=== PATIENT | male | born 1945 | race Caucasian/White ===

== ENCOUNTER → 2017-09-30 15:08 | Outpatient (CLI) | payer MEDICARE, OTHER, SELFPAY ==
[2017-09-30 18:45] LABS: Free T4, Direct Thyroxine 1.57 ng/dL (0.78-2.19)
[2017-09-30 18:58] LABS: TSH w/ Reflex to FT4 0.09 uIU/mL (0.47-4.68)
== END ==
PROVIDERS: Family Provider Internal Medicine; PCP Internal Medicine; Visit Provider Internal Medicine
DX: E03.9 Hypothyroidism, unspecified (principal)
CPT/HCPCS: 36415; 84439; 84443

== ENCOUNTER → 2017-12-05 15:52 | Outpatient (CLI) | payer MEDICARE, OTHER, SELFPAY ==
[2017-12-05 17:56] LABS: Thyroid Stimulating Hormone 1.01 uIU/mL (0.47-4.68)
== END ==
PROVIDERS: Family Provider Internal Medicine; PCP Internal Medicine; Visit Provider Student in an Organized Health Care Education/Training Program
DX: E03.9 Hypothyroidism, unspecified (principal)
CPT/HCPCS: 36415; 84443

== ENCOUNTER 2018-02-19 16:09 | Emergency (ER) | payer MEDICARE, OTHER, SELFPAY ==
[2018-02-19 16:09] VITALS: BP 189/86; PULSE 73; RESP 20; TEMP 36.6; O2SAT 98; BMI 27.2
--- NOTE | 2018-02-19 16:30 | DI.US.S_ITS ---
PROCEDURE: US PERIPH VENOUS LOW EXTREM RT INDICATIONS: RIGHT LOWER LEG SWELLING TECHNIQUE: Real-time imaging, as well as color and pulse Doppler interrogation, were performed of the lower extremity deep veins from the inguinal ligament to the popliteal fossa. COMPARISON: None. FINDINGS: The deep veins are normally compressible, and free of intraluminal thrombus. Color and pulse Doppler demonstrate normal phasic intraluminal flow. There is normal augmentation response to distal compression maneuver. There is a complex Mills's cyst measuring 6.9 x 3.4 x 2.5 cm. IMPRESSION: 1. No DVT in the right lower extremity. 2. A large complex Mills's cyst. Dictated by: Elicia Galvan M.D. on 02/19/2018 at 18:55 Approved by: Elicia Galvan M.D. on 02/19/2018 at 18:57
[2018-02-19 19:12] VITALS: BP 171/88; PULSE 79; RESP 18; O2SAT 98
--- NOTE | 2018-02-19 19:21 | ED.LOWEXIN ---
HPI - Extremity Injury (Lower) General Chief Complaint: Extremity Injury, Lower Stated Complaint: sent by Doctor to R/O blood clot of left leg Time Seen by Provider: 02/19/18 18:54 Source: patient Mode of arrival: ambulatory Limitations: no limitations History of Present Illness HPI Narrative: 72-year-old male, nonsmoker with history of hypothyroidism presents at the request of his physician for evaluation right lower extremity pain and swelling. He states he has had these symptoms off and on for it least a few days and denies any sort of injury or overuse. Admits to increased swelling in his knee which now wall swelling of his lower extremity below the knee. He denies numbness, tingling or weakness. He denies recent long distance travel. He does have a history of right knee Mills cyst years ago. His pain is worse with motion and improves with rest MD complaint: knee injury Relieving factors: immobilization Exacerbating factors: weight bearing and movement Associated symptoms: swelling, able to partially bear weight and ambulatory Other symptoms: none Related Data Home Medications Medication Instructions Recorded Confirmed MULTIVITAMIN (One Daily 1 tab PO #0 08/16/10 Multivitamin) VITAMIN B COMPLEX (Vitamin B 1 tab PO #0 08/16/10 Complex) levothyroxine [Synthroid] 0.125 mg PO QDAY #0 08/16/10 mupirocin 2 TP PRN #0 08/16/10 quinine sulfate [Qualaquin] 324 mg PO PRN #0 08/16/10 POTASSIUM GLUCONATE (POTASSIUM 550 mg PO EVERY OTHER DAY #0 04/03/12 GLUCONATE-) [CO Q-10] 300 mg PO QDAY #0 04/03/12 [FISH OIL] 1,200 mg PO QDAY #0 04/03/12 [Ibuprofen] 200 mg PO TID #0 04/03/12 [MAGNESIUM ] 400 mg PO EVERY OTHER DAY #0 04/03/12 [Vitamin C] 1,000 mg PO QDAY #0 04/03/12 [Vitamin D] 2,000 iu PO QDAY #0 04/03/12 [ZADITOR] 1 gtt OU BID #0 04/03/12 metronidazole [Metrogel] 1 % TOPICAL QDAY #0 gm 04/03/12 Previous Rx's Medication Instructions Recorded gabapentin [Neurontin] 0 PO SEE INSTRUCTIONS #405 tab 05/27/17 Allergies Allergy/AdvReac Type Severity Reaction Status Date / Time latex [LATEX] Allergy Unknown Unverified 05/21/17 12:02 Sulfa (Sulfonamide Allergy Unknown Unverified 05/21/17 12:02 Antibiotics) [SULFA (SULFONAMIDE ANTIBIOTICS)] Review of Systems Constitutional Denies chills, Denies fever(s), Denies lethargy and Denies weakness Eyes Denies change in vision, Denies eye discharge, Denies irritation and Denies loss of vision ENT Ears, Nose, Mouth, and Throat: Denies change in voice, Denies neck pain and Denies sore throat Cardiovascular Denies chest pain, Denies irregular heart rhythm, Denies lightheadedness, Denies palpitations, Denies dyspnea, Denies dyspnea on exertion and Denies orthopnea Respiratory Denies cough, Denies dyspnea, Denies dyspnea on exertion and Denies wheezing Gastrointestinal Gastrointestinal: Denies abdominal pain, Denies change in bowel habits, Denies diarrhea, Denies nausea and Denies vomiting Genitourinary Denies hematuria, Denies flank pain, Denies urinary incontinence and Denies urinary urgency Musculoskeletal Reports joint swelling, Reports limited range of motion and Denies neck pain Integumentary/Breasts Denies pruritus, Denies erythema, Denies rash and Denies wounds Neurologic Denies confusion, Denies loss of vision and Denies weakness Psychiatric Denies anxiety, Denies confusion, Denies depression, Denies homicidal ideation and Denies suicidal ideation Endocrine Denies palpitations Hematologic/Lymphatic Denies easy bruising Allergic/Immunologic Denies wheezing PFSH Social History Smoking Status: Never smoker Exam Narrative Exam Narrative: GEN: AOx3 and in mild distress EYES: Pupils are equal, round, and reactive to light and accommodation. Extraoccular muscles are intact bilaterally. There is no subconjunctival hemorrhage or exudate. CHEST: Lungs are clear to auscultation bilaterally and free of wheezes, rales, or rhonchi. Heart rate is regular rhythm, there are no murmurs, clicks, rubs, or gallops. There is no chest wall tenderness. ABD: Abdomen is soft and nontender. There is no guarding or rebound. Bowel sounds are normal in all 4 quadrants. There is no mass or organomegaly. EXT: Full but painful range of motion at the right knee. There is edema and generalized tenderness but no redness or warmth. There is some swelling of the right calf. No ligamentous instability. Neurovascularly intact SKIN: Warm, pink, and dry. No erythema or rash Initial Vital Signs Initial Vital Signs: Vital Signs Temperature 97.8 F 02/19/18 16:09 Pulse Rate 73 02/19/18 16:09 Respiratory Rate 20 02/19/18 16:09 Blood Pressure 189/86 H 02/19/18 16:09 Pulse Oximetry 98 02/19/18 16:09 Course Orders Ordered: ED Orders 02/19/18 16:30 US periph venous low extrem rt Stat Vital Signs - 8 hr 02/19/18 19:12 Pulse Rate 79 Respiratory Rate 18 Blood Pressure [Left Arm] 171/88 H Pulse Oximetry 98 MDM - Extremity Injury (Lower) Imaging Data US Leg: Radiologist's impression: Antibiotics) CLOSE Vascular Ultrasound (Signed) Madhuri Galvan - 02/19/18 Launch Image View Report History [address] [address] Ultrasound Report Signed Patient: Carroll Wren MR#: [id number] : 1945 Acct:[id number] Age/Sex: 72 / M Date of Service: 02/19/18 Loc: ED Accession Number: [id number] Procedure: US periph venous low extrem rt Ordering Provider: Michelle Hinton D.O. PROCEDURE: US PERIPH VENOUS LOW EXTREM RT INDICATIONS: RIGHT LOWER LEG SWELLING TECHNIQUE: Real-time imaging, as well as color and pulse Doppler interrogation, were performed of the lower extremity deep veins from the inguinal ligament to the popliteal fossa. COMPARISON: None. FINDINGS: The deep veins are normally compressible, and free of intraluminal thrombus. Color and pulse Doppler demonstrate normal phasic intraluminal flow. There is normal augmentation response to distal compression maneuver. There is a complex Mills's cyst measuring 6.9 x 3.4 x 2.5 cm. IMPRESSION: 1. No DVT in the right lower extremity. 2. A large complex Mills's cyst. Dictated by: Elicia Galvan M.D. on 02/19/2018 at 18:55 Discharge Plan Departure Patient Disposition: Home Clinical Impression: Mills's cyst of knee Discharge Date/Time: 02/19/18 19:41 Interventions: ED Discharge Assessment Last Done: 02/19/18 19:41 Instructions: Bakers Cyst Activity Restrictions/Additional Instructions: *You have been diagnosed with [ Right Knee Mills's Cyst ] *What to do: *Take medications as directed *Follow up with your primary care provider in 2-3 days, call for an appointment. Let them know you were seen in the Emergency Department and that we ask that you be seen in follow up. Follow up with Dr. Blackwood next week as planned *Return to ER if you should have any new, worsening or concerning symptoms Prescriptions: No Action levothyroxine [Synthroid] 125 MCG tablet 0.125 mg PO QDAY Qty: 0 RF: 0 quinine sulfate [Qualaquin] 324 MG capsule 324 mg PO PRN Qty: 0 RF: 0 mupirocin 2 % ointment 2 TP PRN Qty: 0 RF: 0 MULTIVITAMIN (One Daily Multivitamin) 1 tab PO Qty: 0 RF: 0 VITAMIN B COMPLEX (Vitamin B Complex) 1 tab PO Qty: 0 RF: 0 [CO Q-10] 300 mg PO QDAY Qty: 0 RF: 0 [Vitamin D] 2,000 iu PO QDAY Qty: 0 RF: 0 [FISH OIL] 1,200 mg PO QDAY Qty: 0 RF: 0 [ZADITOR] 1 gtt OU BID Qty: 0 RF: 0 [Vitamin C] 1,000 mg PO QDAY Qty: 0 RF: 0 metronidazole [Metrogel] 1 % gel 1 % Topical QDAY Qty: 0 RF: 0 [Ibuprofen] 200 mg PO TID Qty: 0 RF: 0 POTASSIUM GLUCONATE (POTASSIUM GLUCONATE-) 550 mg PO EVERY OTHER DAY Qty: 0 RF: 0 [MAGNESIUM ] 400 mg PO EVERY OTHER DAY Qty: 0 RF: 0 gabapentin [Neurontin] 800 MG tablet PO SEE INSTRUCTIONS Qty: 405 RF: 3 Referrals: Edis Kwok MD [Primary Care Provider] -
== END 2018-02-19 19:41 | disposition home or self-care (01) ==
PROVIDERS: Emergency Provider Emergency Medicine; Family Provider Internal Medicine; PCP Internal Medicine
DX: M71.21 Synovial cyst of popliteal space [Baker], right knee (principal)
CPT/HCPCS: 93971; 99282; 99284

== ENCOUNTER 2018-03-26 11:51 | Day surgery (SDC) | payer MEDICARE, OTHER, SELFPAY ==
[2018-03-26] VITALS (9 sets, daily range): BP systolic 97–153; BP diastolic 52–80; PULSE 60–76; RESP 10–18; TEMP 36.1–36.7; O2SAT 94–98; BMI 25.6
[2018-03-26] MEDS: SODIUM CHLORIDE 0.9% 1,000 ML 200 ML IV (12:44)
--- NOTE | 2018-03-26 13:22 | PM.HP.1 ---
History of Present Illness Date Patient Seen: 03/26/18 Time Patient Seen: 13:22 Chief complaint: [address] Colonoscopy Narrative: 72-year-old male who presents for colorectal screening. His last examination was approximately 11 years ago. On further history today he denies any gastrointestinal symptoms or change in bowel habits. Patient History Medical History Erectile dysfunction (Acute) Hyperlipidemia (Acute) Hypothyroidism (Acute) Seasonal allergies (Acute) Surgical History History of colonoscopy (Acute) History of knee surgery (Acute) History of lumbar fusion (Acute) Social History household members: spouse Smoking Status: Never smoker Family & Social History Social History: household members spouse Tobacco & Substance use: Smoking Status Never smoker Substance Use Type does not use Meds Home Medications Medication Instructions Recorded Confirmed Type levothyroxine [Synthroid] 100 mcg PO QDAY #0 08/16/10 03/26/18 History multivitamin 1 tab PO DAILY #0 08/16/10 03/26/18 History cholecalciferol (vitamin D3) 2,000 unit PO DAILY #0 04/03/12 03/26/18 History [Vitamin D3] magnesium 400 mg PO DAILY #0 04/03/12 03/26/18 History metronidazole [Metrogel] 1 % TOPICAL QDAY #0 gm 04/03/12 03/26/18 History omega 4-abe-ams-fish oil [Fish Oil] 1,200 mg PO DAILY #0 04/03/12 03/26/18 History pregabalin [Lyrica] 150 mg PO BID 03/26/18 03/26/18 History rosuvastatin 10 mg PO DAILY 03/26/18 03/26/18 History sildenafil (antihypertensive) 20 mg PO DAILY PRN 03/26/18 03/26/18 History Allergies Allergy/AdvReac Type Severity Reaction Status Date / Time latex [LATEX] Allergy Unknown Verified 03/26/18 12:23 Sulfa (Sulfonamide Allergy Unknown Verified 03/26/18 12:23 Antibiotics) [SULFA (SULFONAMIDE ANTIBIOTICS)] Review of Systems Review of Systems All systems reviewed & are unremarkable except as noted in HPI and below Exam Vital Signs (past 8 hours): - 03/26/18 12:38 Temperature 98 F Pulse Rate 76 Respiratory Rate 15 Blood Pressure 153/80 H Pulse Oximetry 94 Oxygen Delivery Method Room Air Narrative Exam Narrative: Well-nourished well-developed male in no acute distress. Alert oriented x3 Sclera nonicteric Regular rate rhythm Abdomen soft, nondistended, nontender Extremities show no clubbing or cyanosis Objective Labs Labs: No recent laboratory or radiographic studies for review Assessment & Plan Assessment & Plan narrative: 72-year-old male requiring colorectal screening since it has been 11 years from his last examination. Colonoscopy is currently recommended. Technical details reviewed. Risks, benefits, and alternatives were explained. Risks including but not limited to sedation, aspiration, bleeding, pain, missed lesion, incomplete examination, need for further radiographic studies, colonic perforation, need for major abdominal surgery, and all attendant risks of major surgery were explained at length. All questions were answered to his satisfaction, and he voiced understanding. Consent was placed on the chart. We will proceed as above.
--- NOTE | 2018-03-26 13:24 | PM.PREOP ---
Pre-operative Note Interval Note History & Physical reviewed/Exam performed by Physician: Yes Changes to H&P: No H&P completed within 30 days and has changed as indicated here:: Patient seen and examined. History physical examination placed on the chart. No changes obviously in the last 15 min. Proceed with colonoscopy today as planned. ASA Class (for procedural sedation): II
[2018-03-26] MEDS: fentaNYL 250 MCG/5 ML INJ IV (13:38)
[2018-03-26] MEDS: MIDAZOLAM 5 MG/5 ML VIAL IV (13:38)
--- NOTE | 2018-03-26 13:44 | PM.OP.ENDO ---
Operative Date/Time/Diagnoses Date of procedure: 03/26/18 Time of procedure: 13:44 Pre-op diagnosis: Colorectal screening Post-op diagnosis: other (Diverticulosis but otherwise normal colon and rectum) Procedure & Clinicians Study performed: 1. Sedation per surgeon 2. Colonoscopy Same procedure as scheduled: Yes Indications: 72-year-old male who presents for colorectal screening. Last examination was 11 years ago. Colonoscopy is currently recommended. Surgeon: Qasim Alicea Procedure Notes SCOAP/Timeout: Yes Procedure in detail: After obtaining informed consent, the patient was brought to the GI suite and placed in the left lateral decubitus position on the examination table. After placement of appropriate monitors, the patient was given incremental doses of Versed and Fentanyl until an appropriate level of sedation was achieved. A time out was held per SCOAP protocol. A digital rectal examination was performed and did not reveal any masses or obstructing lesions. The colonoscope was gently passed into the patient's anus and the entire colon navigated to the level of the cecum with minimal difficulty. Once in the cecum, the scope was withdrawn being sure to go before and beyond all mucosal folds and prominences and get an excellent examination. The findings are noted above. At the level of the rectal vault, the scope was retroflexed and the internal anal canal was examined. The scope was straightened and air aspirated from the colon. The instrument was removed from the patient's body and the procedure was concluded. The patient was allowed to awaken from sedation without difficulty and taken to the post-anesthesia care unit in good condition. Scope withdrawal time: 7:20 min Sedation minutes: 20 Findings: diverticulosis and other findings (Otherwise normal colon and rectum) Specimen(s): none sent Complications: none Recommendations: High fiber diet and Other recommendation (No further colonoscopy indicated in the absence of any new symptoms) Plan for aftercare: 1. Discharge home Follow up: as needed Disposition: PACU
== END 2018-03-26 14:46 | disposition home or self-care (01) ==
PROVIDERS: Family Provider Internal Medicine; PCP Internal Medicine; Visit Provider Surgery
PROC: 0DJD8ZZ Inspection of Lower Intestinal Tract, Via Natural or Artificial Opening Endoscopic (ICD-10-PCS; CPT 45378; principal; 2018-03-26 13:00)
DX: Z12.11 Encounter for screening for malignant neoplasm of colon (principal); K57.30 Diverticulosis of large intestine without perforation or abscess without bleeding; E78.5 Hyperlipidemia, unspecified; E03.9 Hypothyroidism, unspecified
CPT/HCPCS: G0121; 99152; J2250; J3010

== ENCOUNTER → 2018-05-29 15:14 | Outpatient (CLI) | payer MEDICARE, OTHER, SELFPAY ==
[2018-05-29 15:57] LABS: Hematocrit 41.2 % (41-53); Hemoglobin 13.7 g/dL (13.5-17.5); Mean Corpuscular HGB Conc 33.2 % (30-36); Mean Corpuscular Hemoglobin 31.9 PG (26-34); Mean Corpuscular Volume 96.1 fL (80-100); Platelet Count 160 X10^3/uL (150-400); Red Blood Cell Count 4.29 X10^6/uL (4.5-5.9); Red Cell Distribution Width 13.5 % (11.6-14.8); White Blood Cell Count 6.4 X10^3/uL (4.5-11.0)
[2018-05-29 16:01] LABS: Bacteria Urine None Seen; RBC Urine None Seen (0-5/HPF); WBC Urine None Seen (0-5/HPF)
[2018-05-29 16:04] LABS: Hemoglobin A1C% w Est Avg Glu 5.4 % (4.0-6.0)
[2018-05-29 16:06] LABS: Appearance Urine UA CLEAR; Bilirubin Urine UA NEGATIVE (NEGATIVE); Color Urine UA YELLOW; Glucose Urine UA NEGATIVE (Negative); Ketones Urine UA NEGATIVE (NEGATIVE); Leukocyte Esterase Urine UA NEGATIVE (NEGATIVE); Nitrite Urine UA NEGATIVE (Negative); Occult Blood Urine UA NEGATIVE (Negative); Protein Urine UA NEGATIVE (Negative); Specific Gravity Urine UA <=1.005 (1.000-1.035); Urobilinogen Urine UA 0.2 E.U./dL (0.2); pH Urine UA 6.5 (4.5-8.0)
[2018-05-29 16:12] LABS: Blood Urea Nitrogen 20 mg/dL (9-20); Calcium 9.4 mg/dL (8.4-10.2); Carbon Dioxide 30 mmol/L (22-32); Chloride 102 mmol/L (98-107); Estimated Glomerular Filt Rate > 60.0 mL/min (>60); Glucose 83 mg/dL (80-110); HEMOLYSIS < 15 (0-50); Potassium 4.5 mmol/L (3.4-5.1); Sodium 140 mmol/L (137-145)
[2018-05-29 16:18] LABS: Transferrin 260 mg/dL (206-381)
[2018-05-29 16:18] LABS: Urine Comments Microscopic Normal
== END ==
PROVIDERS: PCP Internal Medicine; Visit Provider Orthopaedic Surgery
DX: E61.1 Iron deficiency (principal); N39.0 Urinary tract infection, site not specified; R73.9 Hyperglycemia, unspecified; Z01.818 Encounter for other preprocedural examination
CPT/HCPCS: 36415; 80048; 81001; 83036; 84466; 85027; 93005; 93010

== ENCOUNTER → 2018-06-10 08:06 | Outpatient (CLI) | payer MEDICARE, OTHER, SELFPAY ==
--- NOTE | 2018-06-10 | DI.US.S_ITS ---
PROCEDURE: US PERIPH VENOUS LOW EXTREM LT INDICATIONS: OTHER SPECIFIED SOFT TISSUE DISORDERS TECHNIQUE: Real-time imaging, as well as color and pulse Doppler interrogation, were performed of the lower extremity deep veins from the inguinal ligament to the popliteal fossa. COMPARISON: None. FINDINGS: The common femoral, femoral and popliteal veins are normally compressible, and free of intraluminal thrombus. Color and pulse Doppler demonstrate normal phasic intraluminal flow. There is normal augmentation response to distal compression maneuver. Incidentally noted Mills's cyst measuring 6.4 x 1.2 x 3.2 cm. IMPRESSION: No evidence of deep venous thrombosis. Incidentally noted Mills's cyst. Dictated by: Sky Roper M.D. on 06/10/2018 at 8:59 Approved by: Sky Roper M.D. on 06/10/2018 at 9:09
== END ==
PROVIDERS: PCP Internal Medicine; Visit Provider Orthopaedic Surgery
DX: M79.89 Other specified soft tissue disorders (principal); M71.22 Synovial cyst of popliteal space [Baker], left knee
CPT/HCPCS: 93971

== ENCOUNTER 2018-07-08 08:54 | Day surgery (SDC) | payer MEDICARE, OTHER, SELFPAY ==
[2018-06-24 13:49] VITALS: BMI 26.3
[2018-07-08] VITALS (23 sets, daily range): BP systolic 98–141; BP diastolic 33–78; PULSE 20–120; RESP 8–19; TEMP 36.1–36.8; O2SAT 91–100; BMI 27.0
--- NOTE | 2018-07-08 09:05 | DI.RAD.S_ITS ---
PROCEDURE: XR KNEE RT 1TO2V INDICATIONS: prosthesis placement TECHNIQUE: 2 view(s) of the knee acquired. COMPARISON: [facility], , KNEE 3V RIGHT, 09/15/2006, 15:15. FINDINGS: Bones: Patient is status post knee joint arthroplasty. Hardware components are in expected positions. Visualized bony structures are intact. Soft tissues: Overlying postoperative changes are noted. IMPRESSION: Normal alignment after right knee arthroplasty. Dictated by: Arden Neville M.D. on 07/08/2018 at 12:56 Approved by: Arden Neville M.D. on 07/08/2018 at 12:56
[2018-07-08] MEDS: LACTATED RINGERS 1,000 ML 42 ML IV ×2 (09:12→11:25)
[2018-07-08] MEDS: ACETAMINOPHEN 325 MG TABLET 975 MG PO ×3 (09:22→20:31)
[2018-07-08] MEDS: PREGABALIN 75 MG CAPSULE PO (09:22)
--- NOTE | 2018-07-08 09:43 | PM.PREOP ---
Pre-operative Note Interval Note History & Physical reviewed/Exam performed by Physician: Yes Changes to H&P: No
--- NOTE | 2018-07-08 09:57 | PM.OP.1 ---
Operative Date/Time/Diagnoses Date of procedure: 07/08/18 Time of procedure: 12:20 Pre-op diagnosis: Right knee osteoarthritis Post-op diagnosis: same Procedure & Clinicians Procedure: Right total knee replacement Same procedure as scheduled: Yes Indications: The patient has had progressively worsening right knee pain with radiographic changes consistent with arthritis. Non-operative management has failed and the patient has requested total knee replacement. The risks, benefits and alternatives to surgery were discussed with the patient prior to proceeding. Risks discussed included, but were not limited to, failure to relieve pain, stiffness, infection, nerve damage, deep venous thrombosis, pulmonary embolism, stroke, coma, heart attack, permanent paralysis and , as well as the potential need for eventual revision of the prosthetic. Surgeon: Jayce Blackwood Helium Arc Welder: Hyun Brush Click Yes if Unassisted: No Anesthesia Type: General, Peripheral nerve block and Local Operative Notes Findings: Severe medial and moderate patellofemoral osteoarthritis Closure Type: primary Specimen(s): none sent Prosthetic devices, grafts, tissues, transplants, or devices: Implants used in this procedure were manufactured by the [employer] and [employer] and included the BCS II Journey total knee replacement with a size 7 right cobalt chromium femur, size 6 right non porous tibial base plate, a 10 mm crosslink polyethylene tibial insert and a 38 mm oval Lisa II patellar component. Applied: implant(s) Estimated Blood Loss (mL): 25 Blood products transfused: none Tourniquet time (min): 51 Procedure in detail: The patient was seen in the pre-operative area, where the patient identified the right knee as the operative site and this was marked with my initials. The patient received pre-operative antibiotics, and was taken to the operating room and placed on the operative table in the supine position. After satisfactory anesthesia, a multimedia technician out was performed. The right leg was encircled with a tourniquet about the proximal thigh, and the leg was prepared from the toes to the tourniquet with ChloroPrep in the usual fashion and draped through sterile drapes. The leg was elevated and exsanguinated with Eschmark bandage and the tourniquet inflated to 250 mmHg pressure. The knee was approached through an approximately 18 cm incision centered over the patella and carried into the knee through a medial parapatellar arthrotomy. The anterior osteophytes and soft tissues were removed. The rotational landmarks of [place]'s line and the transepicondylar axis were marked on the femur with electrocautery, and intramedullary guide holes for the femur and tibia were created. The distal femoral cut was made in 6 degrees of valgus using the intramedullary guide at the primary cut setting. The proximal tibial cut was then made using the intramedullary guide, taking 9 mm of bone off the less involved side. The extension gap was checked and the rotation of the femoral component confirmed with the gap balancing system. The anterior, posterior and chamfer cuts were then made. The posterior osteophytes and soft tissues were then removed. The posterior capsule was injected with part of a mixture of 60 ml 0.25% Marcaine mixed with 20 ml Exparel and 4 mg of morphine for post-operative pain control. The remainder of this mixture was injected into the capsule and subcutaneous tissues during cement curing. The tibia was prepared with the rotation set by an extra medullary guide. Trial tibial and femoral components were then placed and the intercondylar notch cut through the femoral trial. Range of motion was 0-135 degrees, with good stability throughout the range. The patella was then cut to accommodate the patellar prosthetic. There was no need for a lateral release. The trials were then removed, and the femoral hole plugged with a bone plug. The bone was prepared with pulsatile lavage, and dried with a sponge. Cement was applied and the final prosthetics placed. Excess cement was removed during and after cement curing. After confirming there was no extruded cement posteriorly, the final tibial insert was placed. The knee was copiously irrigated and the tourniquet deflated. Hemostasis was obtained. The capsule was closed with interrupted # 2 polyester suture. The subcutaneous layer was closed with 3-0 Vicryl, and the skin with a running 3-0 V-Lock suture and SteriStrips. An Aquacel Ag dressing was applied and the patient was taken to recovery having tolerated the procedure well. Complications: none Condition: stable Disposition: PACU Plan for aftercare: The patient will be maintained on a standard total knee replacement protocol with weight bearing as tolerated. The patient will receive aspirin and sequential compression devices for DVT prophylaxis. The patient will be discharged home when safe for the home environment.
[2018-07-08] MEDS: fentaNYL 100 MCG/2 ML INJ 50 MCG IV (09:58)
[2018-07-08] MEDS: MIDAZOLAM 2 MG/2 ML VIAL IV (09:58)
[2018-07-08] MEDS: CEFAZOLIN 2 GM/100 ML FROZ.PIGGY IV (10:34)
[2018-07-08] MEDS: TRANEXAMIC ACID 1,000 MG VIAL 1000 MG INJ ×2 (10:45→12:06)
--- NOTE | 2018-07-08 11:12 | SUR.OPER ---
Supine on padded OR bed. Pillow under head, arms secured on padded armboards <90 degree abduction. Safety belt across torso. Non-operative leg secured with tape over blanket over lower leg. Operative leg secured in [place]/Mark positioner. Foam padded brace at thigh of operative leg.
[2018-07-08] MEDS: BUPIVACAINE 0.25% W/ EPI 30 ML VIAL 60 ML INJ (11:18)
[2018-07-08] MEDS: BUPIVACAINE LIPOSOME 266 MG/20 ML VIAL INJ (11:20)
[2018-07-08] MEDS: MORPHINE 4 MG/ML INJ INJ (11:21)
[2018-07-08] MEDS: HYDROMORPHONE 2 MG INJ 0.5 MG IV ×5 (12:54→13:29)
--- NOTE | 2018-07-08 13:37 | SUR.PHASEI ---
placed in left lateral position supported with pillows with improvment able to rest, states pain has decreased now to tolerable level. able to sleep.
[2018-07-08] MEDS: LACTATED RINGERS 1,000 ML 125 ML IV (16:16)
[2018-07-08] MEDS: IBUPROFEN 400 MG TABLET PO (17:15)
[2018-07-08] MEDS: DOCUSATE 100 MG CAPSULE PO (20:31)
[2018-07-08] MEDS: PREGABALIN 75 MG CAPSULE 150 MG PO (20:31)
[2018-07-08] MEDS: ASPIRIN EC 81 MG TABLET PO (20:32)
[2018-07-09] MEDS: LACTATED RINGERS 1,000 ML 125 ML IV (01:50)
[2018-07-09 03:07] VITALS: BP 143/65; PULSE 63; RESP 18; TEMP 36.5; O2SAT 100
[2018-07-09] MEDS: IBUPROFEN 400 MG TABLET PO (03:25)
[2018-07-09] MEDS: LEVOTHYROXINE 100 MCG TABLET PO (05:47)
[2018-07-09 06:01] LABS: Hematocrit 34.3 % (41-53); Hemoglobin 11.9 g/dL (13.5-17.5)
[2018-07-09 07:30] VITALS: BP 131/67; PULSE 63; RESP 16; TEMP 36.9; O2SAT 98
--- NOTE | 2018-07-09 07:36 | PM.DS.1 ---
History of Present Illness Date Patient Seen: 07/09/18 Time Patient Seen: 07:37 Chief complaint: [id number] Narrative: History and physical are contained in the chart previously completed note. Please refer to that note for this information. Discharge Providers Date of admission: 07/08/18 08:54 Discharge Date: 07/09/18 Primary care physician: Tomer Asencio MD Consults: 07/08/18 15:03 Consult to Anesthesiology Routine Comment: Consulting Provider: Anesthesiologist Reason for consultation: Regional block for post operative pain control Consult to Discharge Planning Routine Comment: Consult to Physical Therapy Evaluate & Treat Comment: Physician Instructions: postop TKA protocol Discharge provider: Jayce Blackwood MD Summary Discharge Diagnosis: 1. Right knee osteoarthritis 2. Mild post hemorrhagic anemia Hospital Course: The patient was admitted the hospital and taken directly to the operating room on July 08, 2018 where he underwent a right total knee replacement without complications. On postoperative day 1 he was very comfortable and we were anticipating discharge at the time of this dictation. Status at Discharge Cognitive/behavioral status at discharge: oriented Functional status at discharge: uses cane/walker Overall status at discharge: patient is progressing back to baseline Time Spent with Patient Less than 30 minutes Exam Vital Signs (past 8 hours): - 07/09/18 03:07 Temperature 97.7 F Pulse Rate 63 Respiratory Rate 18 Blood Pressure 143/65 H Pulse Oximetry 100 Oxygen Delivery Method Room Air Oxygen Flow Rate 1 Narrative Exam Narrative: Right knee wound is dressed with no drainage on the bandage. Calf is soft. Light touch and motion are intact in the right lower extremity. Objective Labs Result Diagrams: 07/09/18 05:25 Labs: Laboratory Results - last 24 hr 07/09/18 05:25 Hgb 11.9 L Hct 34.3 L Radiographs: Well-positioned total knee replacement with no evidence for early complications. Discharge Plan Discharge Plan Patient Disposition: Home Discharge Med Rec/Prescriptions Prescriptions: New acetaminophen 325 mg Tablet 975 mg PO TID 30 Days Qty: 270 RF: 0 aspirin 81 mg Tablet,Delayed Release (Dr/Ec) 81 mg PO BID Qty: 84 RF: 0 oxycodone 5 mg Tablet 5 mg PO Q3HR PRN (Reason: Pain, Moderate (4-6)) Qty: 40 RF: 0 Continued levothyroxine [Synthroid] 125 MCG tablet 100 mcg PO QDAY Qty: 0 RF: 0 multivitamin Tablet 1 tab PO DAILY Qty: 0 RF: 0 cholecalciferol (vitamin D3) [Vitamin D3] 2,000 unit Tablet 2,000 unit PO Q OTHER DAY Qty: 0 RF: 0 omega 1-unr-okg-fish oil [Fish Oil] 1,000 mg (120 mg-180 mg) Capsule 1,200 mg PO DAILY Qty: 0 RF: 0 metronidazole [Metrogel] 1 % gel 1 % Topical QDAY Qty: 0 RF: 0 magnesium 200 mg Tablet 400 mg PO Q OTHER DAY Qty: 0 RF: 0 rosuvastatin 10 mg Tablet 10 mg PO Q OTHER DAY RF: 0 sildenafil (antihypertensive) 20 mg Tablet 20 mg PO PRN PRN (Reason: Sexual Activity) RF: 0 Lyrica 150 mg Capsule 150 mg PO BID RF: 0 clobetasol 0.05 % Cream 1 applic TOPICAL DAILY PRN (Reason: Hives) RF: 0 ibuprofen 200 mg Tablet 400 mg PO BID-TID PRN (Reason: pain) RF: 0 triamterene-hydrochlorothiazid 37.5-25 mg Tablet 1 tab PO DAILY RF: 0 loratadine [Claritin] 10 mg Tablet 10 mg PO DAILY RF: 0 diclofenac sodium [Voltaren] 1 % Gel 2 g TOPICAL PRN PRN (Reason: Arthritis in hands) RF: 0 Follow up/Referrals: Tomer Asencio MD [Primary Care Provider] - Jayce Blackwood MD [Physician] - 3-5 Days Provider Discharge Instructions Diet: Diet as Tolerated and Regular Activity: You may weight bear as tolerated on your right leg. Cold/Heat Therapy: Apply ice to your right knee for 15 minutes of every hour as needed for pain. Skin/Wound/Dressing Care Report to your healthcare provider any signs of infection, such as:: chills, fever, night sweats, increased pain, unusual drainage and unusual redness Dressing: Leave the Anmol wrap in place until 3 days after surgery. You may then remove the Anmol wrap and shower normally. Leave the deeper dressing in place until you return to the office. If the central strip of the deep dressing becomes saturated with either water or blood call the office to have it changed. Visit Report/Discharge Packet Instructions: DI for Knee Replacement Stand Alone Forms: Surgery Discharge Discharge Data Primary Care Provider: Tomer Asencio V Attending Provider: Jayce Blackwood Admit Date/Time: 07/08/18 08:54
[2018-07-09] MEDS: TRIAMTERENE/HCTZ 37.5/25 TABLET 1 CAP PO (09:37)
[2018-07-09] MEDS: PREGABALIN 75 MG CAPSULE 150 MG PO (09:37)
[2018-07-09] MEDS: LORATADINE 10 MG TABLET PO (09:38)
[2018-07-09] MEDS: ACETAMINOPHEN 325 MG TABLET 975 MG PO (09:38)
[2018-07-09] MEDS: DOCUSATE 100 MG CAPSULE PO (09:38)
--- NOTE | 2018-07-09 10:14 | PT.IIE ---
Current Diagnoses Unilateral primary osteoarthritis, right knee (07/08/18) Surgery Performed Operation Date: 07/08/18 10:15 Actual Procedures p Total Knee Arthroplasty(Right) - Jayce Blackwood MD Surgical History (Last Updated 06/24/18 @ 14:39 by Kamala Lee, RN) H/O arthroscopy of right knee (Acute) History of back surgery (Acute ~2012) History of colonoscopy (Acute) History of knee surgery (Acute) History of lumbar fusion (Acute ~2009) History of lumbar fusion (Acute 06/12/12) Hx of hand surgery (Acute) Hx of laminectomy (Acute ~1990) Hx of tonsillectomy (Acute) Medical History (Last Updated 06/24/18 @ 14:33 by Kamala Lee RN) Atypical chest pain (Acute) Bronchitis (Acute) Elevated blood pressure reading without diagnosis of hypertension (Acute) Erectile dysfunction (Acute) Hearing impaired (Acute) Hyperlipidemia (Acute) Hypothyroidism (Acute) Left leg swelling (Acute) Low back pain (Acute) Osteoarthritis (Acute) Peripheral neuropathy, idiopathic (Acute) Seasonal allergies (Acute) Physical Therapy Inpatient Evaluation/Re-Eval M1 PT/OT-IP Prior Functional Status Start: 07/08/18 17:03 Freq: NEEDED Status: Discharge Protocol: Document 07/09/18 10:14 AB (Rec: 07/09/18 13:36 AB [id number]) Medical Review Prior Functional Status Medical History Reviewed Yes Communication able to make needs known Mobility and Gait pt stated that he is independent with all mobilities an dambultion without AD but has uses a FWW/ SPC for the last 2 weeks due ot knee pain Social History Household Members spouse Living Arrangements House Number of Floors (Floors) One Floor Number of Stairs To Enter/Railing? 5 steps to enter with L rail ascending from the garage Home Environment Standard Height Toilet Walk in Shower Home Equipment Front Wheel Walker Straight Cane Raised Toilet Seat w/Armrests Shower Seat with Backrest Grab Bars In Shower M2 PT-IP Current Condition Start: 07/08/18 17:03 Freq: NEEDED Status: Discharge Protocol: Document 07/09/18 10:14 AB (Rec: 07/09/18 13:36 AB [id number]) Physical Therapy Current Condition Current Condition Evaluation Date 07/09/18 Treatment Diagnosis s/p R TKR; difficulty in walking Onset Date 07/08/18 Weight Bearing Status Weight Bearing Status Weight Bear as Tolerated M3 PT-IP Subjective Start: 07/08/18 17:03 Freq: NEEDED Status: Discharge Protocol: Document 07/09/18 10:14 AB (Rec: 07/09/18 13:36 AB [id number]) Subjective Physical Therapy Visit Type Type Initial Evaluation Visit Start Time 10:14 Visit Stop Time 10:51 Total Visit Minutes 37 Number of LOSS PREVENTION AND SAFETY MANAGER Visits 0 Physical Therapy Visit Comments Patient Comments pt agreeable to do PT Therapy Pain Assessment Pain When Pain Assessed At Rest Pain Present Pain Present Pain Reported Location Generalized Intensity 3 Scale Used Numeric (1 - 10) M4 PT-IP Mobility and Gait Start: 07/08/18 17:03 Freq: NEEDED Status: Discharge Protocol: Document 07/09/18 10:14 AB (Rec: 07/09/18 13:36 AB [id number]) PT-Bed Mobility Assessment Supine to Sit Supine to Sit Standby Assistance Sit to Supine Sit to Supine Standby Assistance Scooting Scooting to Edge of Bed Standby Assistance PT-Transfer Assessment Sit to and From Stand Sit to and from Stand Standby Assistance Equipment Transfer Assistive Device Gait Belt Front Wheeled Walker Orthotic/Prosthetic Devices or Brace: No Transfers Transfer Destination Bed Transfer Technique pt ambulated using FWW Transfer Ability Level of Assist Standby Assistance Gait Assessment Gait Gait Assistance Required: Standby Assistance Distance (Feet) 200 Able to Maintain Weight Bearing Status Yes During Gait Assistive Devices Assistive Device Gait Belt Front Wheeled Walker Orthotic/Prosthetic Devices or Brace: No Gait Deviations General Gait Pattern Antalgic Decreased Stride Length Decreased Feet Clearance Factors Limiting Gait Function Factors Limiting Gait Function Decreased Activity Tolerance Decreased Strength Limited Range of Motion Pain Poor Balance Comments Gait Comments pt ambulated towards the stair and back to room 200 ft x 2 using FWW SBA . Stair Climbing Assessment Evaluation Level of Assist On Stairs Contact Guard Assistance 1 Person Assistance Devices Stair Climbing Assistive Devices Left Railing Technique/Endurance Stair Climbing Direction Ascend and Descend Stair Climbing Technique Step to Step Number of Steps Climbed 3 Query Text: Stair Climbing Set # Repetitions (reps) 2 PT-Balance Assessment Sitting Balance and Reactions Static Sitting Balance Ability Good Dynamic Sitting Balance Ability Good Standing Balance and Reactions Static Standing Balance Ability Fair Dynamic Standing Balance Ability Fair Device Used FWW M5 PT-IP Objective Assessments Start: 07/08/18 17:03 Freq: NEEDED Status: Discharge Protocol: Document 07/09/18 10:14 AB (Rec: 07/09/18 13:36 AB [id number]) Orientation Orientation/Cognition Level of Alertness Alert Orientation Name Place Situation Safety Awareness Understands Safety Issues Gross Range of Motion Lower Extremity ROM Assessment Right Impaired Impairments R knee flexion: ~ 70 deg R knee extension: lacking ~ 10 deg to neutral Strength Lower Extremity Strength Assessment Right Impaired Hip 4-/5 Knee 3+/5 Coordination Assessment Gross Coordination Gross Coordination WNL Sensation Assessment Sensation Gross Sensation WNL Muscle Tone Muscle Tone WNL Yes M6 PT-IP Treatment Start: 07/08/18 17:03 Freq: NEEDED Status: Discharge Protocol: Document 07/09/18 10:14 AB (Rec: 07/09/18 13:36 AB [id number]) Physical Therapy Treatment Exercises Exercises Heel Slides Education Education Provided Precautions Weight Bearing Status Post-Op Packet Safety M7 PT-IP Assessment and Plan Start: 07/08/18 17:03 Freq: NEEDED Status: Discharge Protocol: Document 07/09/18 10:14 AB (Rec: 07/09/18 13:36 AB [id number]) PT Summary Assessment and Plan Potential Rehabilitation Potential Good Status of Condition at Evaluation Stable Summary Impairments Pain ROM Strength Balance Coordination Sensation Tone Cognition Bed Mobility Transfers Gait Activity Tolerance Assessment Summary pt requiring SBA to CGA with mobility and plans to go home today with spouse to assist him. pt is already set up for outpt PT. Goals Bed Mobility Goal Independent Transfer Goal Independent Front Wheeled Walker Gait Goal Independent Front Wheel Walker Gait Distance 250 Other Goals up/down 5 steps with L rail ascending SBA Days to Meet Goals 3 Frequency of Treatment Frequency Of Treatment Twice a Day Treatment Plan Physical Therapy Treatment Plan Bed Mobility Training Transfer Training Gait Training Therapeutic Exercise Balance Retraining Post Op Education Discharge Planning Hot or Cold Pack Neuromuscular Re-ed Coordination Retraining Manual Therapy Recommendations To Nursing Amount of Assist Needed Standby Assistance Discharge Recommendations PT Discharge Recommendations Home with Assistance Outpatient PT
[2018-07-09] MEDS: ASPIRIN EC 81 MG TABLET PO (11:35)
--- NOTE | 2018-07-09 11:50 | PC.NURSE ---
Discharge PIV removed prior to d/c. D/c instructions provided to pt and . Aware to f/u with MD for post op apt as well as for any additional questions or concerns. Pt left with all belongings. Left in w/c with and STRAPPING MACHINE OPERATOR escort to car.
--- NOTE | 2018-07-09 15:10 | CM.IDA ---
Initial DCP Assessment Note: Pt is a 72 yo male, resident of [place], now POD#1 from Rt total knee surgery w/ Dr Blackwood . PCP: Dr Asencio Payer: Medicare/[facility] Reviewed chart, pt discussed in multidisciplinary rounds this morning. Therapy has cleared pt for return home w/family to assist and pt has planned for home, DC order from [facility] has already been initiated this morning. No needs expected from DC planning team although will remain available in case this changes today. BELINDA Bruno
== END 2018-07-09 11:40 | disposition home or self-care (01) ==
LOC: AC 07-09 07:32 → OR 07-09 12:50
PROVIDERS: PCP Internal Medicine; Visit Provider Orthopaedic Surgery
PROC: 0SRC0JZ Replacement of Right Knee Joint with Synthetic Substitute, Open Approach (ICD-10-PCS; CPT 27447; principal; 2018-07-08 10:15)
DX: M17.11 Unilateral primary osteoarthritis, right knee (principal)
CPT/HCPCS: 27447; 36415; 73560; 85014; 85018; 97116; 97161; C1776; C9290; J0690; J1100; J1170; J2250; J2270; J2405; J2704; J3010

== ENCOUNTER 2018-08-09 17:01 | Emergency (ER) | payer MEDICARE, OTHER, SELFPAY ==
[2018-07-08 16:05] VITALS: BMI 27.0
[2018-08-09 17:10] VITALS: BP 161/67; PULSE 64; RESP 20; TEMP 37; O2SAT 99; BMI 27.7
--- NOTE | 2018-08-09 17:17 | ED.CHESTPAIN ---
HPI - Chest Pain <Preethi Jhoan, DO - Last Filed: 08/12/18 07:33> General Chief Complaint: Chest Pain Stated Complaint: chest pain [id number]. Time Seen by Provider: 08/09/18 17:17 Source: patient Mode of arrival: ambulatory Limitations: no limitations History of Present Illness HPI narrative: Patient is a 72-year-old male who presents with sternal chest pain radiating to his scapulas. 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 He says that he had this feeling 1 other time 6-8 months ago. He actually was at his PCPs office when that happened he had an EKG which he says showed an abnormality. That led to a stress test. He actually had knee surgery here just a week ago the abnormality on his EKG which looks like Q-waves in the septal leads. Again he was cleared for surgery based on his previous stress test. He has had no further workup since that. He has no shortness of breath no nausea no diaphoresis no heart palpitations or dizziness. MD complaint: chest pain Onset (ago): minute(s) Related Data Home Medications Medication Instructions Recorded Confirmed levothyroxine [Synthroid] 100 mcg PO QDAY #0 08/16/10 07/08/18 multivitamin 1 tab PO DAILY #0 08/16/10 07/08/18 cholecalciferol (vitamin D3) 2,000 unit PO Q OTHER DAY #0 04/03/12 07/08/18 [Vitamin D3] magnesium 400 mg PO Q OTHER DAY #0 04/03/12 07/08/18 metronidazole [Metrogel] 1 % TOPICAL QDAY #0 gm 04/03/12 07/08/18 omega 0-clk-zfe-fish oil [Fish Oil] 1,200 mg PO DAILY #0 04/03/12 07/08/18 Lyrica 150 mg PO BID 03/26/18 07/08/18 rosuvastatin 10 mg PO Q OTHER DAY 03/26/18 07/08/18 sildenafil (antihypertensive) 20 mg PO PRN PRN 03/26/18 07/08/18 clobetasol 1 applic TOPICAL DAILY PRN 06/24/18 07/08/18 diclofenac sodium [Voltaren] 2 g TOPICAL PRN PRN 06/24/18 07/08/18 ibuprofen 400 mg PO BID-TID PRN 06/24/18 07/08/18 loratadine [Claritin] 10 mg PO DAILY 06/24/18 07/08/18 triamterene-hydrochlorothiazid 1 tab PO DAILY 06/24/18 07/08/18 Previous Rx's Medication Instructions Recorded aspirin 81 mg PO BID #84 tab 07/09/18 oxycodone 5 mg PO Q3HR PRN #40 tab 07/09/18 Allergies Allergy/AdvReac Type Severity Reaction Status Date / Time latex [LATEX] Allergy Severe Rash Verified 08/09/18 17:14 Sulfa (Sulfonamide Allergy Mild Itching on Verified 08/09/18 17:14 Antibiotics) arms, rash [SULFA (SULFONAMIDE ANTIBIOTICS)] duloxetine AdvReac Intermediate Urinary Verified 08/09/18 17:14 retention quinine [From Qualaquin] AdvReac Intermediate Flu-like Verified 08/09/18 17:14 symptoms [id number] Reductase AdvReac Mild Back Verified 08/09/18 17:14 Inhibitor aches/pain adhesive AdvReac Rash Verified 08/09/18 17:14 Review of Systems <Preethi Staples DO - Last Filed: 08/12/18 07:33> Review of Systems GENERAL: Denies chills, fatigue, malaise, fever, sweats, travel HEENT: Denies sinus pain, ear pain, sore throat, difficulty swallowing, neck pain RESPIRATORY: Denies dyspnea, cough, wheezing, hemoptysis, sputum. CARDIOVASCULAR: see HPI GASTROINTESTINAL: Denies nausea, vomiting, abdominal pain, diarrhea, constipation, melena. : Denies dysuria, frequency, incontinence, hematuria, urinary retention, flank pain. MUSCULOSKELETAL: Denies weakness, joint pain, or bony pain SKIN: No rash, no erythema, no pruritus NEUROLOGIC: Denies weakness, dizziness, headache, numbness, change in speech, confusion PSYCHIATRIC: No concerning psychosocial issues. 12 point review of systems is negative except for those stated above and HPI PFSH <Preethi Staples DO - Last Filed: 08/12/18 07:33> Medical History Atypical chest pain (Acute) Bronchitis (Acute) Elevated blood pressure reading without diagnosis of hypertension (Acute) Erectile dysfunction (Acute) Hearing impaired (Acute) Hyperlipidemia (Acute) Hypothyroidism (Acute) Left leg swelling (Acute) Low back pain (Acute) Osteoarthritis (Acute) Peripheral neuropathy, idiopathic (Acute) Seasonal allergies (Acute) Surgical History H/O arthroscopy of right knee (Acute) History of back surgery (Acute ~2012) History of colonoscopy (Acute) History of knee surgery (Acute) History of lumbar fusion (Acute ~2009) History of lumbar fusion (Acute 06/12/12) Hx of hand surgery (Acute) Hx of laminectomy (Acute ~1990) Hx of tonsillectomy (Acute) Social History household members: spouse Smoking Status: Former smoker Social History household members: spouse Smoking Status: Former smoker Exam <Preethi Staples DO - Last Filed: 08/12/18 07:33> Initial Vital Signs Initial Vital Signs: Vital Signs Temperature 98.6 F 08/09/18 17:10 Pulse Rate 64 08/09/18 17:10 Respiratory Rate 20 08/09/18 17:10 Blood Pressure 161/67 H 08/09/18 17:10 Pulse Oximetry 99 08/09/18 17:10 GENERAL: Well-appearing, well-nourished and in no acute distress. HEENT: Head atraumatic,EOMI, pupils reactive, face symmetric, moist mucous membranes CARDIOVASCULAR: Regular rate and rhythm without murmurs, rubs or gallops. RESPIRATORY: Breath sounds equal bilaterally, no wheezes rales or rhonchi. ABDOMEN: Soft, nontender. Normoactive bowel sounds all 4 quadrants. No guarding or rebound. EXTREMITIES: Normal range of motion, no clubbing or edema. Neurovascularly intact NEUROLOGICAL: Alert and oriented x4.Normal gait and speech. Cranial nerves II through XII grossly intact. SKIN: Warm, dry, no laceration, no petechiae, no rashes or lesions. <Hai Deutsch DO - Last Filed: 08/09/18 23:33> Initial Vital Signs Initial Vital Signs: Vital Signs Temperature 98.6 F 08/09/18 17:10 Pulse Rate 64 08/09/18 17:10 Respiratory Rate 20 08/09/18 17:10 Blood Pressure 161/67 H 08/09/18 17:10 Pulse Oximetry 99 08/09/18 17:10 Scores <Preethi Staples DO - Last Filed: 08/12/18 07:33> HEART Score Heart Score history: Moderately Suspicious Heart Score EKG: Normal Heart Score Age: > or = 65 years old Heart Score risk factors: 1-2 risk factors Heart Score troponin: < or = to normal limit Heart Score Total: 4 Course <Preethi Staples DO - Last Filed: 08/12/18 07:33> Orders Ordered: Discontinued Medications Aspirin (Aspirin Chew) 324 mg PO NOW ONE Stop: 08/09/18 17:24 Last Admin: 08/09/18 17:30 Dose: 243 mg Nitroglycerin (Nitrostat) 0.4 mg SL [id number] PRN PRN Reason: Chest Pain Vital Signs - 8 hr 08/09/18 17:10 08/09/18 18:58 08/09/18 20:57 Temperature 98.6 F Pulse Rate 64 60 58 L Respiratory Rate 20 13 12 Blood Pressure 161/67 H Blood Pressure [Right Arm] 124/66 157/75 H Pulse Oximetry 99 100 100 <Hai Deutsch DO - Last Filed: 08/09/18 23:33> Orders Ordered: Discontinued Medications Aspirin (Aspirin Chew) 324 mg PO NOW ONE Stop: 08/09/18 17:24 Last Admin: 08/09/18 17:30 Dose: 243 mg Nitroglycerin (Nitrostat) 0.4 mg SL [id number] PRN PRN Reason: Chest Pain Vital Signs - 8 hr 08/09/18 17:10 08/09/18 18:58 08/09/18 20:57 Temperature 98.6 F Pulse Rate 64 60 58 L Respiratory Rate 20 13 12 Blood Pressure 161/67 H Blood Pressure [Right Arm] 124/66 157/75 H Pulse Oximetry 99 100 100 MDM - Chest Pain <DO Jose Carlos Perkins Last Filed: 08/12/18 07:33> Lab Data Attestation: I reviewed the patient's lab results. Result diagrams: 08/09/18 17:11 08/09/18 17:11 Lab Results 06/30/19 06/30/19 06/30/19 Range/Units 17:11 17:11 20:05 WBC 6.3 (4.5-11.0) X10^3/uL RBC 3.93 L (4.5-5.9) X10^6/uL Hgb 12.7 L (13.5-17.5) g/dL Hct 38.1 L (41-53) % MCV 96.8 (80-100) fL MCH 32.3 (26-34) PG MCHC 33.4 (30-36) % RDW 14.2 (11.6-14.8) % Plt Count 216 (150-400) X10^3/uL Neut % (Auto) 64.1 (50-75) % Lymph % (Auto) 19.4 L (25-40) % [place] % (Auto) 9.0 (3-14) % Eos % (Auto) 6.5 H (2-4) % Baso % (Auto) 1.0 (0-2) % Neut # (Auto) 4000 (1703-4043) /uL Lymph # (Auto) 1200 (4223-7878) /uL [place] # (Auto) 600 (0-900) /uL Eos # (Auto) 400 (0-450) /uL Baso # (Auto) 100 (0-100) /uL Sodium 140 (137-145) mmol/L Potassium 4.0 (3.4-5.1) mmol/L Chloride 103 (98-107) mmol/L Carbon Dioxide 29 (22-32) mmol/L BUN 21 H (9-20) mg/dL Creatinine 0.90 (0.66-1.25) mg/dL Estimated GFR > 60.0 (>60) mL/min BUN/Creatinine Ratio 23.3 H (6-22) Glucose 119 H (80-110) mg/dL Calcium 9.5 (8.4-10.2) mg/dL Total Bilirubin 0.9 (0.2-1.3) mg/dL AST 29 (17-59) IU/L ALT 23 (21-72) IU/L Alkaline Phosphatase 94 (38-126) U/L Total Creatine Kinase 71 (55-170) U/L CK-MB (CK-2) TNP CK-MB (CK-2) Rel Index TNP Troponin I < 0.012 < 0.012 (0.01-0.034) ng/mL Total Protein 7.6 (6.3-8.2) g/dL Albumin 4.3 (3.5-5.0) g/dL Globulin 3.3 (1.7-4.1) g/dL Albumin/Globulin Ratio 1.3 (1.0-2.8) Lipase 72 (23-300) U/L Imaging Data Chest x-ray: Radiologist's impression: PROCEDURE: XR CHEST 1V INDICATIONS: chest pain TECHNIQUE: One view of the chest was acquired. COMPARISON: None. FINDINGS: Surgical changes and devices: None. Lungs and pleura: There is mild right basilar atelectasis. There is prominence of the pulmonary vasculature. No pleural effusions or pneumothorax. Mediastinum: Mediastinal contours appear normal. Heart size is normal. Bones and chest wall: No suspicious bony lesions. Overlying soft tissues appear unremarkable. IMPRESSION: Mild right basilar atelectasis. Dictated by: Dereje Tatum M.D. on 08/09/2018 at 18:03 ECG Data Attestation: I personally reviewed and interpreted this ECG as follows: Prior ECG tracings: available for review Interpretation: Normal sinus rhythm rate [address] changes Q-wave noted in V1 and V2 similar to all previous EKGs including dose from 2013 MDM Narrative Medical decision making narrative: Patient signed out to Dr. Deutsch for further disposition. <Hai Deutsch DO - Last Filed: 08/09/18 23:33> Lab Data Lab Results 08/09/18 08/09/18 08/09/18 Range/Units 17:11 17:11 20:05 WBC 6.3 (4.5-11.0) X10^3/uL RBC 3.93 L (4.5-5.9) X10^6/uL Hgb 12.7 L (13.5-17.5) g/dL Hct 38.1 L (41-53) % MCV 96.8 (80-100) fL MCH 32.3 (26-34) PG MCHC 33.4 (30-36) % RDW 14.2 (11.6-14.8) % Plt Count 216 (150-400) X10^3/uL Neut % (Auto) 64.1 (50-75) % Lymph % (Auto) 19.4 L (25-40) % [place] % (Auto) 9.0 (3-14) % Eos % (Auto) 6.5 H (2-4) % Baso % (Auto) 1.0 (0-2) % Neut # (Auto) 4000 (7986-5847) /uL Lymph # (Auto) 1200 (9851-4680) /uL [place] # (Auto) 600 (0-900) /uL Eos # (Auto) 400 (0-450) /uL Baso # (Auto) 100 (0-100) /uL Sodium 140 (137-145) mmol/L Potassium 4.0 (3.4-5.1) mmol/L Chloride 103 (98-107) mmol/L Carbon Dioxide 29 (22-32) mmol/L BUN 21 H (9-20) mg/dL Creatinine 0.90 (0.66-1.25) mg/dL Estimated GFR > 60.0 (>60) mL/min BUN/Creatinine Ratio 23.3 H (6-22) Glucose 119 H (80-110) mg/dL Calcium 9.5 (8.4-10.2) mg/dL Total Bilirubin 0.9 (0.2-1.3) mg/dL AST 29 (17-59) IU/L ALT 23 (21-72) IU/L Alkaline Phosphatase 94 (38-126) U/L Total Creatine Kinase 71 (55-170) U/L CK-MB (CK-2) TNP CK-MB (CK-2) Rel Index TNP Troponin I < 0.012 < 0.012 (0.01-0.034) ng/mL Total Protein 7.6 (6.3-8.2) g/dL Albumin 4.3 (3.5-5.0) g/dL Globulin 3.3 (1.7-4.1) g/dL Albumin/Globulin Ratio 1.3 (1.0-2.8) Lipase 72 (23-300) U/L [facility] Narrative Medical decision making narrative: Received turned over from day provider. Performed my own history and physical exam. Patient's repeat EKG timed 1855 hours shows sinus bradycardia ventricular rate of 55 normal axis normal QRS normal QTC no ST T wave changes. This is unchanged from his EKG upon arrival. Patient's repeat troponin was negative. He did have a stress test in October of last year. Had a long discussion with him and his regarding his symptoms and follow-up. He has been asymptomatic since being here in the emergency department. Will have him contact his primary doctor tomorrow for a follow-up in to discuss further evaluation and treatment. He was given return precautions and follow-up instructions. He expressed understanding and agreement with plan. Discharge Plan Departure Patient Disposition: Home Clinical Impression: Atypical chest pain Discharge Date/Time: 08/09/18 21:02 Interventions: ED Discharge Assessment Last Done: 08/09/18 21:02 Instructions: DI for Atypical Chest Pain Activity Restrictions/Additional Instructions: Continue all of your medications as directed. Tomorrow contact your primary provider to discuss further testing and to discuss the possibility of a referral to see cardiology. Return to the emergency department for any new or worsening symptoms Prescriptions: No Action levothyroxine [Synthroid] 125 MCG tablet 100 mcg PO QDAY Qty: 0 RF: 0 multivitamin Tablet 1 tab PO DAILY Qty: 0 RF: 0 cholecalciferol (vitamin D3) [Vitamin D3] 2,000 unit Tablet 2,000 unit PO Q OTHER DAY Qty: 0 RF: 0 omega 3-bzr-bye-fish oil [Fish Oil] 1,000 mg (120 mg-180 mg) Capsule 1,200 mg PO DAILY Qty: 0 RF: 0 metronidazole [Metrogel] 1 % gel 1 % Topical QDAY Qty: 0 RF: 0 magnesium 200 mg Tablet 400 mg PO Q OTHER DAY Qty: 0 RF: 0 rosuvastatin 10 mg Tablet 10 mg PO Q OTHER DAY RF: 0 sildenafil (antihypertensive) 20 mg Tablet 20 mg PO PRN PRN (Reason: Sexual Activity) RF: 0 Lyrica 150 mg Capsule 150 mg PO BID RF: 0 clobetasol 0.05 % Cream 1 applic TOPICAL DAILY PRN (Reason: Hives) RF: 0 ibuprofen 200 mg Tablet 400 mg PO BID-TID PRN (Reason: pain) RF: 0 triamterene-hydrochlorothiazid 37.5-25 mg Tablet 1 tab PO DAILY RF: 0 loratadine [Claritin] 10 mg Tablet 10 mg PO DAILY RF: 0 diclofenac sodium [Voltaren] 1 % Gel 2 g TOPICAL PRN PRN (Reason: Arthritis in hands) RF: 0 aspirin 81 mg Tablet,Delayed Release (Dr/Ec) 81 mg PO BID Qty: 84 RF: 0 oxycodone 5 mg Tablet 5 mg PO Q3HR PRN (Reason: Pain, Moderate (4-6)) Qty: 40 RF: 0 Referrals: Tomer Asencio MD [Primary Care Provider] -
--- NOTE | 2018-08-09 17:20 | ED_ITS ---
HPI - Chest Pain <Preethi Jhoan, DO - Last Filed: 08/12/18 07:33> General Chief Complaint: Chest Pain Stated Complaint: chest pain [id number]. Time Seen by Provider: 08/09/18 17:17 Source: patient Mode of arrival: ambulatory Limitations: no limitations History of Present Illness HPI narrative: Patient is a 72-year-old male who presents with sternal chest pain radiating to his scapulas. 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 He says that he had this feeling 1 other time 6-8 months ago. He actually was at his PCPs office when that happened he had an EKG which he says showed an abnormality. That led to a stress test. He actually had knee surgery here just a week ago the abnormality on his EKG which looks like Q-waves in the septal leads. Again he was cleared for surgery based on his previous stress test. He has had no further workup since that. He has no shortness of breath no nausea no diaphoresis no heart palpitations or dizziness. MD complaint: chest pain Onset (ago): minute(s) Related Data Home Medications Medication Instructions Recorded Confirmed levothyroxine [Synthroid] 100 mcg PO QDAY #0 08/16/10 07/08/18 multivitamin 1 tab PO DAILY #0 08/16/10 07/08/18 cholecalciferol (vitamin D3) 2,000 unit PO Q OTHER DAY #0 04/03/12 07/08/18 [Vitamin D3] magnesium 400 mg PO Q OTHER DAY #0 04/03/12 07/08/18 metronidazole [Metrogel] 1 % TOPICAL QDAY #0 gm 04/03/12 07/08/18 omega 7-wvx-raz-fish oil [Fish Oil] 1,200 mg PO DAILY #0 04/03/12 07/08/18 Lyrica 150 mg PO BID 03/26/18 07/08/18 rosuvastatin 10 mg PO Q OTHER DAY 03/26/18 07/08/18 sildenafil (antihypertensive) 20 mg PO PRN PRN 03/26/18 07/08/18 clobetasol 1 applic TOPICAL DAILY PRN 06/24/18 07/08/18 diclofenac sodium [Voltaren] 2 g TOPICAL PRN PRN 06/24/18 07/08/18 ibuprofen 400 mg PO BID-TID PRN 06/24/18 07/08/18 loratadine [Claritin] 10 mg PO DAILY 06/24/18 07/08/18 triamterene-hydrochlorothiazid 1 tab PO DAILY 06/24/18 07/08/18 Previous Rx's Medication Instructions Recorded aspirin 81 mg PO BID #84 tab 07/09/18 oxycodone 5 mg PO Q3HR PRN #40 tab 07/09/18 Allergies Allergy/AdvReac Type Severity Reaction Status Date / Time latex [LATEX] Allergy Severe Rash Verified 08/09/18 17:14 Sulfa (Sulfonamide Allergy Mild Itching on Verified 08/09/18 17:14 Antibiotics) arms, rash [SULFA (SULFONAMIDE ANTIBIOTICS)] duloxetine AdvReac Intermediate Urinary Verified 08/09/18 17:14 retention quinine [From Qualaquin] AdvReac Intermediate Flu-like Verified 08/09/18 17:14 symptoms Iipyrnu-Xgt-Arx Reductase AdvReac Mild Back Verified 08/09/18 17:14 Inhibitor aches/pain adhesive AdvReac Rash Verified 08/09/18 17:14 Review of Systems <Preethi Staples DO - Last Filed: 08/12/18 07:33> Review of Systems GENERAL: Denies chills, fatigue, malaise, fever, sweats, travel HEENT: Denies sinus pain, ear pain, sore throat, difficulty swallowing, neck pain RESPIRATORY: Denies dyspnea, cough, wheezing, hemoptysis, sputum. CARDIOVASCULAR: see HPI GASTROINTESTINAL: Denies nausea, vomiting, abdominal pain, diarrhea, constipation, melena. : Denies dysuria, frequency, incontinence, hematuria, urinary retention, flank pain. MUSCULOSKELETAL: Denies weakness, joint pain, or bony pain SKIN: No rash, no erythema, no pruritus NEUROLOGIC: Denies weakness, dizziness, headache, numbness, change in speech, confusion PSYCHIATRIC: No concerning psychosocial issues. 12 point review of systems is negative except for those stated above and HPI PFSH <Preethi Staples DO - Last Filed: 08/12/18 07:33> Medical History Atypical chest pain (Acute) Bronchitis (Acute) Elevated blood pressure reading without diagnosis of hypertension (Acute) Erectile dysfunction (Acute) Hearing impaired (Acute) Hyperlipidemia (Acute) Hypothyroidism (Acute) Left leg swelling (Acute) Low back pain (Acute) Osteoarthritis (Acute) Peripheral neuropathy, idiopathic (Acute) Seasonal allergies (Acute) Surgical History H/O arthroscopy of right knee (Acute) History of back surgery (Acute ~2012) History of colonoscopy (Acute) History of knee surgery (Acute) History of lumbar fusion (Acute ~2009) History of lumbar fusion (Acute 06/12/12) Hx of hand surgery (Acute) Hx of laminectomy (Acute ~1990) Hx of tonsillectomy (Acute) Social History household members: spouse Smoking Status: Former smoker Social History household members: spouse Smoking Status: Former smoker Exam <Preethi Staples DO - Last Filed: 08/12/18 07:33> Initial Vital Signs Initial Vital Signs: Vital Signs Temperature 98.6 F 08/09/18 17:10 Pulse Rate 64 08/09/18 17:10 Respiratory Rate 20 08/09/18 17:10 Blood Pressure 161/67 H 08/09/18 17:10 Pulse Oximetry 99 08/09/18 17:10 GENERAL: Well-appearing, well-nourished and in no acute distress. HEENT: Head atraumatic,EOMI, pupils reactive, face symmetric, moist mucous membranes CARDIOVASCULAR: Regular rate and rhythm without murmurs, rubs or gallops. RESPIRATORY: Breath sounds equal bilaterally, no wheezes rales or rhonchi. ABDOMEN: Soft, nontender. Normoactive bowel sounds all 4 quadrants. No guarding or rebound. EXTREMITIES: Normal range of motion, no clubbing or edema. Neurovascularly intact NEUROLOGICAL: Alert and oriented x4.Normal gait and speech. Cranial nerves II through XII grossly intact. SKIN: Warm, dry, no laceration, no petechiae, no rashes or lesions. <Hai Deutsch DO - Last Filed: 08/09/18 23:33> Initial Vital Signs Initial Vital Signs: Vital Signs Temperature 98.6 F 08/09/18 17:10 Pulse Rate 64 08/09/18 17:10 Respiratory Rate 20 08/09/18 17:10 Blood Pressure 161/67 H 08/09/18 17:10 Pulse Oximetry 99 08/09/18 17:10 Scores <Preethi Staples DO - Last Filed: 08/12/18 07:33> HEART Score Heart Score history: Moderately Suspicious Heart Score EKG: Normal Heart Score Age: > or = 65 years old Heart Score risk factors: 1-2 risk factors Heart Score troponin: < or = to normal limit Heart Score Total: 4 Course <Preethi Staples DO - Last Filed: 08/12/18 07:33> Orders Ordered: Discontinued Medications Aspirin (Aspirin Chew) 324 mg PO NOW ONE Stop: 08/09/18 17:24 Last Admin: 08/09/18 17:30 Dose: 243 mg Nitroglycerin (Nitrostat) 0.4 mg SL [id number] PRN PRN Reason: Chest Pain Vital Signs - 8 hr 08/09/18 17:10 08/09/18 18:58 08/09/18 20:57 Temperature 98.6 F Pulse Rate 64 60 58 L Respiratory Rate 20 13 12 Blood Pressure 161/67 H Blood Pressure [Right Arm] 124/66 157/75 H Pulse Oximetry 99 100 100 <Hai Deutsch DO - Last Filed: 08/09/18 23:33> Orders Ordered: Discontinued Medications Aspirin (Aspirin Chew) 324 mg PO NOW ONE Stop: 08/09/18 17:24 Last Admin: 08/09/18 17:30 Dose: 243 mg Nitroglycerin (Nitrostat) 0.4 mg SL [id number] PRN PRN Reason: Chest Pain Vital Signs - 8 hr 08/09/18 17:10 08/09/18 18:58 08/09/18 20:57 Temperature 98.6 F Pulse Rate 64 60 58 L Respiratory Rate 20 13 12 Blood Pressure 161/67 H Blood Pressure [Right Arm] 124/66 157/75 H Pulse Oximetry 99 100 100 MDM - Chest Pain <DO Jose Carlos Perkins Last Filed: 08/12/18 07:33> Lab Data Attestation: I reviewed the patient's lab results. Result diagrams: 08/09/18 17:11 08/09/18 17:11 Lab Results 06/30/19 06/30/19 06/30/19 Range/Units 17:11 17:11 20:05 WBC 6.3 (4.5-11.0) X10^3/uL RBC 3.93 L (4.5-5.9) X10^6/uL Hgb 12.7 L (13.5-17.5) g/dL Hct 38.1 L (41-53) % MCV 96.8 (80-100) fL MCH 32.3 (26-34) PG MCHC 33.4 (30-36) % RDW 14.2 (11.6-14.8) % Plt Count 216 (150-400) X10^3/uL Neut % (Auto) 64.1 (50-75) % Lymph % (Auto) 19.4 L (25-40) % Christian % (Auto) 9.0 (3-14) % Eos % (Auto) 6.5 H (2-4) % Baso % (Auto) 1.0 (0-2) % Neut # (Auto) 4000 (3108-5077) /uL Lymph # (Auto) 1200 (3013-6632) /uL Christian # (Auto) 600 (0-900) /uL Eos # (Auto) 400 (0-450) /uL Baso # (Auto) 100 (0-100) /uL Sodium 140 (137-145) mmol/L Potassium 4.0 (3.4-5.1) mmol/L Chloride 103 (98-107) mmol/L Carbon Dioxide 29 (22-32) mmol/L BUN 21 H (9-20) mg/dL Creatinine 0.90 (0.66-1.25) mg/dL Estimated GFR > 60.0 (>60) mL/min BUN/Creatinine Ratio 23.3 H (6-22) Glucose 119 H (80-110) mg/dL Calcium 9.5 (8.4-10.2) mg/dL Total Bilirubin 0.9 (0.2-1.3) mg/dL AST 29 (17-59) IU/L ALT 23 (21-72) IU/L Alkaline Phosphatase 94 (38-126) U/L Total Creatine Kinase 71 (55-170) U/L CK-MB (CK-2) TNP CK-MB (CK-2) Rel Index TNP Troponin I < 0.012 < 0.012 (0.01-0.034) ng/mL Total Protein 7.6 (6.3-8.2) g/dL Albumin 4.3 (3.5-5.0) g/dL Globulin 3.3 (1.7-4.1) g/dL Albumin/Globulin Ratio 1.3 (1.0-2.8) Lipase 72 (23-300) U/L Imaging Data Chest x-ray: Radiologist's impression: PROCEDURE: XR CHEST 1V INDICATIONS: chest pain TECHNIQUE: One view of the chest was acquired. COMPARISON: None. FINDINGS: Surgical changes and devices: None. Lungs and pleura: There is mild right basilar atelectasis. There is prominence of the pulmonary vasculature. No pleural effusions or pneumothorax. Mediastinum: Mediastinal contours appear normal. Heart size is normal. Bones and chest wall: No suspicious bony lesions. Overlying soft tissues appear unremarkable. IMPRESSION: Mild right basilar atelectasis. Dictated by: Dereje Tatum M.D. on 08/09/2018 at 18:03 ECG Data Attestation: I personally reviewed and interpreted this ECG as follows: Prior ECG tracings: available for review Interpretation: Normal sinus rhythm rate [address] changes Q-wave noted in V1 and V2 similar to all previous EKGs including dose from 2013 MDM Narrative Medical decision making narrative: Patient signed out to Dr. Deutsch for further disposition. <Hai Deutsch DO - Last Filed: 08/09/18 23:33> Lab Data Lab Results 08/09/18 08/09/18 08/09/18 Range/Units 17:11 17:11 20:05 WBC 6.3 (4.5-11.0) X10^3/uL RBC 3.93 L (4.5-5.9) X10^6/uL Hgb 12.7 L (13.5-17.5) g/dL Hct 38.1 L (41-53) % MCV 96.8 (80-100) fL MCH 32.3 (26-34) PG MCHC 33.4 (30-36) % RDW 14.2 (11.6-14.8) % Plt Count 216 (150-400) X10^3/uL Neut % (Auto) 64.1 (50-75) % Lymph % (Auto) 19.4 L (25-40) % Christian % (Auto) 9.0 (3-14) % Eos % (Auto) 6.5 H (2-4) % Baso % (Auto) 1.0 (0-2) % Neut # (Auto) 4000 (3162-0894) /uL Lymph # (Auto) 1200 (1539-1466) /uL Christian # (Auto) 600 (0-900) /uL Eos # (Auto) 400 (0-450) /uL Baso # (Auto) 100 (0-100) /uL Sodium 140 (137-145) mmol/L Potassium 4.0 (3.4-5.1) mmol/L Chloride 103 (98-107) mmol/L Carbon Dioxide 29 (22-32) mmol/L BUN 21 H (9-20) mg/dL Creatinine 0.90 (0.66-1.25) mg/dL Estimated GFR > 60.0 (>60) mL/min BUN/Creatinine Ratio 23.3 H (6-22) Glucose 119 H (80-110) mg/dL Calcium 9.5 (8.4-10.2) mg/dL Total Bilirubin 0.9 (0.2-1.3) mg/dL AST 29 (17-59) IU/L ALT 23 (21-72) IU/L Alkaline Phosphatase 94 (38-126) U/L Total Creatine Kinase 71 (55-170) U/L CK-MB (CK-2) TNP CK-MB (CK-2) Rel Index TNP Troponin I < 0.012 < 0.012 (0.01-0.034) ng/mL Total Protein 7.6 (6.3-8.2) g/dL Albumin 4.3 (3.5-5.0) g/dL Globulin 3.3 (1.7-4.1) g/dL Albumin/Globulin Ratio 1.3 (1.0-2.8) Lipase 72 (23-300) U/L [facility] Narrative Medical decision making narrative: Received turned over from day provider. Performed my own history and physical exam. Patient's repeat EKG timed 1855 hours shows sinus bradycardia ventricular rate of 55 normal axis normal QRS normal QTC no ST T wave changes. This is unchanged from his EKG upon arrival. Patient's repeat troponin was negative. He did have a stress test in October of last year. Had a long discussion with him and his regarding his symptoms and follow-up. He has been asymptomatic since being here in the emergency department. Will have him contact his primary doctor tomorrow for a follow-up in to discuss further evaluation and treatment. He was given return precautions and follow-up instructions. He expressed understanding and agreement with plan. Discharge Plan Departure Patient Disposition: Home Clinical Impression: Atypical chest pain Discharge Date/Time: 08/09/18 21:02 Interventions: ED Discharge Assessment Last Done: 08/09/18 21:02 Instructions: DI for Atypical Chest Pain Activity Restrictions/Additional Instructions: Continue all of your medications as directed. Tomorrow contact your primary provider to discuss further testing and to discuss the possibility of a referral to see cardiology. Return to the emergency department for any new or worsening symptoms Prescriptions: No Action levothyroxine [Synthroid] 125 MCG tablet 100 mcg PO QDAY Qty: 0 RF: 0 multivitamin Tablet 1 tab PO DAILY Qty: 0 RF: 0 cholecalciferol (vitamin D3) [Vitamin D3] 2,000 unit Tablet 2,000 unit PO Q OTHER DAY Qty: 0 RF: 0 omega 8-mjd-ihk-fish oil [Fish Oil] 1,000 mg (120 mg-180 mg) Capsule 1,200 mg PO DAILY Qty: 0 RF: 0 metronidazole [Metrogel] 1 % gel 1 % Topical QDAY Qty: 0 RF: 0 magnesium 200 mg Tablet 400 mg PO Q OTHER DAY Qty: 0 RF: 0 rosuvastatin 10 mg Tablet 10 mg PO Q OTHER DAY RF: 0 sildenafil (antihypertensive) 20 mg Tablet 20 mg PO PRN PRN (Reason: Sexual Activity) RF: 0 Lyrica 150 mg Capsule 150 mg PO BID RF: 0 clobetasol 0.05 % Cream 1 applic TOPICAL DAILY PRN (Reason: Hives) RF: 0 ibuprofen 200 mg Tablet 400 mg PO BID-TID PRN (Reason: pain) RF: 0 triamterene-hydrochlorothiazid 37.5-25 mg Tablet 1 tab PO DAILY RF: 0 loratadine [Claritin] 10 mg Tablet 10 mg PO DAILY RF: 0 diclofenac sodium [Voltaren] 1 % Gel 2 g TOPICAL PRN PRN (Reason: Arthritis in hands) RF: 0 aspirin 81 mg Tablet,Delayed Release (Dr/Ec) 81 mg PO BID Qty: 84 RF: 0 oxycodone 5 mg Tablet 5 mg PO Q3HR PRN (Reason: Pain, Moderate (4-6)) Qty: 40 RF: 0 Referrals: Tomer Asencio MD [Primary Care Provider] -
--- NOTE | 2018-08-09 17:23 | DI.RAD.S_ITS ---
PROCEDURE: XR CHEST 1V INDICATIONS: chest pain TECHNIQUE: One view of the chest was acquired. COMPARISON: None. FINDINGS: Surgical changes and devices: None. Lungs and pleura: There is mild right basilar atelectasis. There is prominence of the pulmonary vasculature. No pleural effusions or pneumothorax. Mediastinum: Mediastinal contours appear normal. Heart size is normal. Bones and chest wall: No suspicious bony lesions. Overlying soft tissues appear unremarkable. IMPRESSION: Mild right basilar atelectasis. Dictated by: Dereje Tatum M.D. on 08/09/2018 at 18:03 Approved by: Dereje Tatum M.D. on 08/09/2018 at 18:04
[2018-08-09] MEDS: ASPIRIN 81 MG TAB 324 MG PO (17:30)
[2018-08-09 17:34] LABS: Add Manual Diff / Slide Review NO; Basophils Absolute Auto 100 /uL (0-100); Eosinophils Absolute Auto 400 /uL (0-450); Eosinophils Percent Auto 6.5 % (2-4); Hematocrit 38.1 % (41-53); Hemoglobin 12.7 g/dL (13.5-17.5); Lymphocytes Absolute Auto 1200 /uL (1100-4500); Lymphocytes Percent Auto 19.4 % (25-40); Mean Corpuscular HGB Conc 33.4 % (30-36); Mean Corpuscular Hemoglobin 32.3 PG (26-34); Mean Corpuscular Volume 96.8 fL (80-100); Monocytes Absolute Auto 600 /uL (0-900); Neutrophils Absolute Auto 4000 /uL (1500-7000); Neutrophils Percent Auto 64.1 % (50-75); Platelet Count 216 X10^3/uL (150-400); Red Blood Cell Count 3.93 X10^6/uL (4.5-5.9); Red Cell Distribution Width 14.2 % (11.6-14.8); White Blood Cell Count 6.3 X10^3/uL (4.5-11.0)
[2018-08-09 17:37] LABS: Alanine Aminotransferase 23 IU/L (21-72); Albumin 4.3 g/dL (3.5-5.0); Albumin Globulin Ratio 1.3 (1.0-2.8); Alkaline Phosphatase 94 U/L (38-126); Aspartate Aminotransferase 29 IU/L (17-59); BUN Creatinine Ratio 23.3 (6-22); Bilirubin Total 0.9 mg/dL (0.2-1.3); Blood Urea Nitrogen 21 mg/dL (9-20); Calcium 9.5 mg/dL (8.4-10.2); Carbon Dioxide 29 mmol/L (22-32); Chloride 103 mmol/L (98-107); Creatine Kinase 71 U/L (55-170); Estimated Glomerular Filt Rate > 60.0 mL/min (>60); Globulin 3.3 g/dL (1.7-4.1); Glucose 119 mg/dL (80-110); HEMOLYSIS < 15 (0-50); Lipase 72 U/L (23-300); Sodium 140 mmol/L (137-145); Total Protein 7.6 g/dL (6.3-8.2)
[2018-08-09 17:48] LABS: Troponin I < 0.012 ng/mL (0.01-0.034)
[2018-08-09 18:58] VITALS: BP 124/66; PULSE 60; RESP 13; O2SAT 100
[2018-08-09 20:35] LABS: Troponin I < 0.012 ng/mL (0.01-0.034)
[2018-08-09 20:57] VITALS: BP 157/75; PULSE 58; RESP 12; O2SAT 100
== END 2018-08-09 21:02 | disposition home or self-care (01) ==
PROVIDERS: Emergency Medicine; Emergency Provider Emergency Medicine; PCP Internal Medicine
DX: R07.89 Other chest pain (principal)
CPT/HCPCS: 36591; 71045; 80053; 82550; 83690; 84484; 85025; 93005; 99283; 99285

== ENCOUNTER → 2018-11-18 18:52 | Outpatient (ROUT) | payer MEDICARE, OTHER, SELFPAY ==
[2018-07-08 16:05] VITALS: BMI 27.0
[2018-11-18 19:35] LABS: Aspartate Aminotransferase 31 IU/L (17-59); Blood Urea Nitrogen 20 mg/dL (9-20); Carbon Dioxide 33 mmol/L (22-32); Chloride 98 mmol/L (98-107); Cholesterol 139 mg/dL (140-199); Estimated Glomerular Filt Rate > 60.0 mL/min (>60); Glucose 86 mg/dL (80-110); HDL Cholesterol 61 mg/dL (40-60); HEMOLYSIS < 15 (0-50); LDL Cholesterol Calculated 63 mg/dL (<100); Potassium 4.6 mmol/L (3.4-5.1); Sodium 140 mmol/L (137-145); Triglycerides 76 mg/dL (35-150)
== END ==
PROVIDERS: PCP Internal Medicine; Visit Provider Internal Medicine
DX: I10 Essential (primary) hypertension (principal); E78.2 Mixed hyperlipidemia; N40.0 Benign prostatic hyperplasia without lower urinary tract symptoms
CPT/HCPCS: 80048; 80061; 84153; 84450

== ENCOUNTER → 2019-03-03 14:08 | Outpatient (CLI) | payer MEDICARE, OTHER, SELFPAY ==
[2018-07-08 16:05] VITALS: BMI 27.0
[2019-03-03 14:20] LABS: Bacteria Urine None Seen
[2019-03-03 14:39] LABS: Add Manual Diff / Slide Review NO; Basophils Absolute Auto 0 /uL (0-100); Basophils Percent Auto 0.9 % (0-2); Eosinophils Absolute Auto 100 /uL (0-450); Eosinophils Percent Auto 1.8 % (2-4); Hematocrit 40.9 % (41-53); Lymphocytes Absolute Auto 800 /uL (1100-4500); Lymphocytes Percent Auto 17.4 % (25-40); Mean Corpuscular HGB Conc 34.3 % (30-36); Mean Corpuscular Hemoglobin 32.7 PG (26-34); Mean Corpuscular Volume 95.5 fL (80-100); Monocytes Absolute Auto 500 /uL (0-900); Monocytes Percent Auto 11.8 % (3-14); Neutrophils Absolute Auto 3000 /uL (1500-7000); Neutrophils Percent Auto 68.1 % (50-75); Platelet Count 169 X10^3/uL (150-400); Red Blood Cell Count 4.28 X10^6/uL (4.5-5.9); Red Cell Distribution Width 13.8 % (11.6-14.8); White Blood Cell Count 4.4 X10^3/uL (4.5-11.0)
[2019-03-03 14:47] LABS: Hemoglobin A1C% w Est Avg Glu 5.3 % (4.0-6.0)
[2019-03-03 14:58] LABS: BUN Creatinine Ratio 22.5 (6-22); Blood Urea Nitrogen 18 mg/dL (9-20); Calcium 9.8 mg/dL (8.4-10.2); Carbon Dioxide 32 mmol/L (22-32); Chloride 100 mmol/L (98-107); Estimated Glomerular Filt Rate > 60.0 mL/min (>60); Glucose 92 mg/dL (80-110); HEMOLYSIS < 15 (0-50); Potassium 4.2 mmol/L (3.4-5.1); Sodium 139 mmol/L (137-145)
[2019-03-03 15:04] LABS: Transferrin 291 mg/dL (206-381)
[2019-03-03 16:10] LABS: Appearance Urine UA CLEAR; Bilirubin Urine UA NEGATIVE (NEGATIVE); Color Urine UA YELLOW; Glucose Urine UA NEGATIVE (Negative); Ketones Urine UA NEGATIVE (NEGATIVE); Leukocyte Esterase Urine UA NEGATIVE (NEGATIVE); Nitrite Urine UA NEGATIVE (Negative); Occult Blood Urine UA NEGATIVE (Negative); Protein Urine UA NEGATIVE (Negative); Urobilinogen Urine UA 0.2 E.U./dL (0.2)
[2019-03-03 16:22] LABS: Culture Indicated Urine Cult Not Indicated; RBC Urine 0-1/HPF (0-5/HPF); WBC Urine 0-1/HPF (0-5/HPF)
== END ==
PROVIDERS: PCP Internal Medicine; Visit Provider Orthopaedic Surgery
DX: Z01.818 Encounter for other preprocedural examination (principal); Z01.812 Encounter for preprocedural laboratory examination; R73.9 Hyperglycemia, unspecified; N39.0 Urinary tract infection, site not specified; D64.9 Anemia, unspecified
CPT/HCPCS: 36415; 80048; 81001; 83036; 84466; 85025; 93005; 93010

== ENCOUNTER 2019-04-05 06:03 | Day surgery (SDC) | payer MEDICARE, OTHER, SELFPAY ==
[2018-07-08 16:05] VITALS: BMI 27.0
[2019-03-24 13:34] VITALS: BMI 27.2
[2019-04-05] VITALS (10 sets, daily range): BP systolic 106–153; BP diastolic 53–77; PULSE 48–61; RESP 11–18; TEMP 36.3–36.8; O2SAT 96–100; BMI 27.6
--- NOTE | 2019-04-05 06:00 | DI.RAD.S_ITS ---
PROCEDURE: XR KNEE LT 1TO2V INDICATIONS: post op total knee TECHNIQUE: 2 view(s) of the knee acquired. COMPARISON: [facility], DANA, XR KNEE RT 1TO2V, 07/08/2018, 12:43. [facility], DANA, KNEE 3V RIGHT, 09/15/2006, 15:15. FINDINGS: Bones: Patient is status post knee joint arthroplasty. Hardware components are in expected positions. Visualized bony structures are intact. Soft tissues: Overlying postoperative changes are noted. IMPRESSION: Normal alignment after left total knee arthroplasty. Dictated by: Arden Neville M.D. on 04/05/2019 at 10:44 Approved by: Arden Neville M.D. on 04/05/2019 at 10:44
[2019-04-05] MEDS: ACETAMINOPHEN 325 MG TABLET 975 MG PO (07:19)
[2019-04-05] MEDS: PREGABALIN 75 MG CAPSULE PO (07:20)
[2019-04-05] MEDS: CELECOXIB 200 MG CAPSULE PO (07:20)
[2019-04-05] MEDS: MELOXICAM 7.5 MG TABLET 15 MG PO (07:20)
[2019-04-05] MEDS: fentaNYL 100 MCG/2 ML INJ 50 MCG IV ×2 (07:45→07:58)
[2019-04-05] MEDS: LACTATED RINGERS 1,000 ML 42 ML IV ×2 (07:50→09:15)
--- NOTE | 2019-04-05 07:53 | PM.PREOP ---
Pre-operative Note Interval Note History & Physical reviewed/Exam performed by Physician: Yes Changes to H&P: No
[2019-04-05] MEDS: MIDAZOLAM 2 MG/2 ML VIAL IV (07:57)
--- NOTE | 2019-04-05 07:59 | PM.OP.1 ---
Operative Date/Time/Diagnoses Date of procedure: 04/05/19 Time of procedure: 09:30 Pre-op diagnosis: Left knee osteoarthritis Post-op diagnosis: same Procedure & Clinicians Procedure: Left total knee replacement Same procedure as scheduled: Yes Indications: The patient has had progressively worsening left knee pain with radiographic changes consistent with arthritis. Non-operative management has failed and the patient has requested total knee replacement. The risks, benefits and alternatives to surgery were discussed with the patient prior to proceeding. Risks discussed included, but were not limited to, failure to relieve pain, stiffness, infection, nerve damage, deep venous thrombosis, pulmonary embolism, stroke, coma, heart attack, permanent paralysis and , as well as the potential need for eventual revision of the prosthetic. Surgeon: Jayce Blackwood Data Warehouse Administrator: Osbaldo Salvador Click Yes if Unassisted: No Anesthesia Type: General, Spinal, Peripheral nerve block and Local Operative Notes Findings: Severe medial and moderate patellofemoral osteoarthritis. Closure Type: primary Specimen(s): none sent Prosthetic devices, grafts, tissues, transplants, or devices: Implants used in this procedure were manufactured by the [employer] and [employer] and included the BCS II Journey total knee replacement with a size 7 cobalt chromium femur, a size 7 non porous tibial base plate, a 9 mm cross-linked polyethylene tibial insert and a 38 mm oval Lisa II patella. Applied: implant(s) Estimated Blood Loss (mL): 25 Blood products transfused: none Tourniquet time (min): 53 Procedure in detail: The patient was seen in the pre-operative area, where the left knee was identified as the operative site and this was marked with my initials. The patient received pre-operative antibiotics, and was taken to the operating room and placed on the operative table in the supine position. After satisfactory anesthesia, a regional sales representative out was performed. The left leg was encircled with a tourniquet about the proximal thigh, and the leg was prepared from the toes to the tourniquet with ChloroPrep in the usual fashion and draped through sterile drapes. The leg was elevated and exsanguinated with Eschmark bandage and the tourniquet inflated to 250 mmHg pressure. The knee was approached through an approximately 18 cm incision centered over the patella and carried into the knee through a medial parapatellar arthrotomy. The anterior osteophytes and soft tissues were removed. The rotational landmarks of Ligonier's line and the transepicondylar axis were marked on the femur with electrocautery, and intramedullary guide holes for the femur and tibia were created. The distal femoral cut was made in 6 degrees of valgus using the intramedullary guide at the primary cut setting. The proximal tibial cut was then made using the intramedullary guide, taking 9 mm of bone off the less involved side. The extension gap was checked and the rotation of the femoral component confirmed with the gap balancing blocks. The anterior, posterior and chamfer cuts were then made. The posterior osteophytes and soft tissues were then removed. The posterior capsule was injected with part of a mixture of 50 ml 0.25% Marcaine mixed with 20 ml Exparel and 4 mg of morphine for post-operative pain control. The remainder of this mixture was injected into the capsule and subcutaneous tissues during cement curing. The tibia was prepared with the rotation set by an extra medullary guide. Trial tibial and femoral components were then placed and the intercondylar notch cut through the femoral trial. Range of motion was 0-135 degrees, with good stability throughout the range. The patella was then cut to accommodate the patellar prosthetic. There was no need for a lateral release. The trials were then removed, and the femoral hole plugged with a bone plug. The bone was prepared with pulsatile lavage, and dried with a sponge. Cement was applied and the final prosthetics placed. Excess cement was removed during and after cement curing. After confirming there was no extruded cement posteriorly, the final tibial insert was placed. The knee was copiously irrigated and the tourniquet deflated. Hemostasis was obtained. The capsule was closed with interrupted # 2 polyester sutures. The subcutaneous layer was closed with 3-0 Vicryl, and the skin with a running 3-0 V-Lock suture and SteriStrips. An Aquacel Ag dressing was applied and the patient was taken to recovery having tolerated the procedure well. Complications: none Post-operative Condition: stable Disposition: PACU Plan for aftercare: The patient will be maintained on a standard total knee replacement protocol with weight bearing as tolerated. The patient will receive aspirin and sequential compression devices for DVT prophylaxis. The patient will be discharged home when safe for the home environment.
--- NOTE | 2019-04-05 08:02 | SUR.PREOP ---
Block start time [0745] . Monitoring initiated and maintained throughout procedure. Oxygen and medications given per anesthesiologist instructions. Patient remained stable throughout procedure, no adverse reactions noted. Block end time [0755].
[2019-04-05] MEDS: CEFAZOLIN 2 GM/100 ML FROZ.PIGGY IV (08:05)
--- NOTE | 2019-04-05 08:33 | SUR.OPER ---
Supine on padded OR bed. Pillow under head, arms secured on padded armboards <90 degree abduction. Safety belt across torso. Non-operative leg secured with tape over blanket over lower leg. Operative leg secured in [place]o positioner.
[2019-04-05] MEDS: BUPIVACAINE 0.25% W/ EPI (PF) 10 ML VIAL 60 ML INJ (08:39)
[2019-04-05] MEDS: BUPIVACAINE LIPOSOME 266 MG/20 ML VIAL INJ (08:39)
[2019-04-05] MEDS: MORPHINE 4 MG/ML INJ INJ (08:41)
[2019-04-05] MEDS: TRANEXAMIC ACID 1,000 MG VIAL 1000 MG INJ ×2 (08:41→09:40)
--- NOTE | 2019-04-05 11:13 | CM.DANOTE ---
DCP: Case received, EMR reviewed and met with patient. Introduced self and role. , Neli, was also at bedside. Was able to obtain baseline history regarding activity and living situation. DCP assessment completed with information currently available. Patient is a 73 year old male who admitted early this morning to the care of the orthopedic team. PCP: Dr. Asencio. Payer: confirmed: Medicare/[employer]. Patient came to the hospital for a surgical procedure. He had left total knee arthroplasty. Patient has history of osteoarthritis of his left knee. Met with patient in his room. He is alert and oriented. , Neli, was in room as well. Patient stated that prior to surgery, he has been using a cane. Confirmed that he has a few stairs from his garage to get into his home. He is independent, and drives. Him and his reside here in [place]. He has outpatient P.T. already set up. He will be working with P.T. here in the hospital before going home. P: Patient has discharge orders. He will be working with P.T. today before going home. Vita Jameson RN/Dough Mixer
[2019-04-05] MEDS: LACTATED RINGERS 1,000 ML 125 ML IV (11:42)
[2019-04-05] MEDS: IBUPROFEN 400 MG TABLET PO (13:33)
[2019-04-05] MEDS: ACETAMINOPHEN 325 MG TABLET 650 MG PO (14:55)
--- NOTE | 2019-04-05 15:16 | PT.IIE ---
Current Diagnoses Unilateral primary osteoarthritis, left knee (04/05/19) Surgery Performed Operation Date: 04/05/19 07:45 Actual Procedures p Total Knee Arthroplasty(Left) - Jayce Blackwood MD Surgical History (Last Updated 03/24/19 @ 13:40 by Kamala Lee RN) H/O arthroscopy of right knee (Acute) History of arthroplasty of right knee (Acute 07/08/18) History of back surgery (Acute ~2012) History of colonoscopy (Acute) History of knee surgery (Acute) History of lumbar fusion (Acute ~2009) History of lumbar fusion (Acute 06/12/12) Hx of hand surgery (Acute) Hx of laminectomy (Acute ~1990) Hx of tonsillectomy (Acute) Medical History (Last Updated 03/24/19 @ 14:28 by Kamala Lee RN) Allergic rhinitis (Acute) Atypical chest pain (Acute) Bronchitis (Acute) Eczema (Acute) Elevated blood pressure reading without diagnosis of hypertension (Acute) Erectile dysfunction (Acute) Essential tremor (Acute) Hearing impaired (Acute) Hyperlipidemia (Acute) Hypothyroidism (Acute) Left leg swelling (Acute) Low back pain (Acute) Nocturnal leg cramps (Acute) Osteoarthritis (Acute) Peripheral neuropathy, idiopathic (Acute) Rosacea (Acute) Rotator cuff impingement syndrome (Acute) Seasonal allergies (Acute) Spinal stenosis (Acute) Urticaria (Acute) Venous insufficiency (Acute) WBC decreased (Acute) Physical Therapy Inpatient Evaluation/Re-Eval M1 PT/OT-IP Prior Functional Status Start: 04/05/19 12:04 Freq: NEEDED Status: Active Protocol: Document 04/05/19 14:53 AW (Rec: 04/05/19 15:16 AW [id number]) Medical Review Prior Functional Status Medical History Reviewed Yes Communication WNL. Able to make needs knows Mobility and Gait Pt states he has been using a SPC ~80% of the time over the past month due to increasing knee pain. Pt had R TKA on and has been pleased with his progress Activities of Daily Living and IADL's Independent Social History Household Members spouse Living Arrangements House Number of Floors (Floors) One Floor Number of Stairs To Enter/Railing? 6 TERESA with L rail ascending through the garage (usual entrance) Home Environment High Toilet,Walk in Shower, Built-In Shower Seat Home Equipment Front Wheel Walker,Straight Cane,Grab Bars In Shower M2 PT-IP Current Condition Start: 04/05/19 12:04 Freq: NEEDED Status: Active Protocol: Document 04/05/19 14:53 AW (Rec: 04/05/19 15:16 AW [id number]) Physical Therapy Current Condition Current Condition Evaluation Date 04/05/19 Treatment Diagnosis L TKA; difficulty in walking Onset Date 04/05/19 Weight Bearing Status Weight Bearing Status Weight Bear as Tolerated M3 PT-IP Subjective Start: 04/05/19 12:04 Freq: NEEDED Status: Active Protocol: Document 04/05/19 14:53 AW (Rec: 04/05/19 15:16 AW [id number]) Subjective Physical Therapy Visit Type Type Initial Evaluation Visit Start Time 14:17 Visit Stop Time 14:49 Total Visit Minutes 32 Notes Pt's spouse, Neli, present throughout evaluation Number of LAND DEPARTMENT HEAD Visits 0 Physical Therapy Visit Comments Patient Comments Pt did well after R TKA in June 2018; happy to work with PT Patient Goals Pt hopes to discharge to home today Therapy Pain Assessment Pain When Pain Assessed During Mobility Location left anterior thigh Intensity 2 Scale Used Numeric (1 - 10) Pain Management Techniques Apply Cold,Distraction,Re- positioning,Timing of Activity with Medications M4 PT-IP Mobility and Gait Start: 04/05/19 12:04 Freq: NEEDED Status: Active Protocol: Document 04/05/19 14:53 AW (Rec: 04/05/19 15:16 AW [id number]) PT-Bed Mobility Assessment Supine to Sit Supine to Sit Standby Assistance Scooting Scooting to Edge of Bed Standby Assistance PT-Transfer Assessment Sit to and From Stand Sit to and from Stand Standby Assistance,1 Person Assistance,Use of Upper Extremities Equipment Transfer Assistive Device Gait Belt,Front Wheeled Walker Orthotic/Prosthetic Devices or Brace: No Transfers Transfer Destination Chair Transfer Technique pt ambulated with FWW Transfer Ability Level of Assist Standby Assistance,1 Person Assistance,Use of Upper Extremities Comments Mobility Comments Pt encountered sitting up in bed with visiting and in good spirits. He completed supine to sit SBA, able to straight leg raise the left leg. He sat EOB with good trunk control and balance, denying nausea or lightheadedness. Pt stood using FWW SBA and transferred to the bedside chair SBA. Pt stood again SBA with FWW and ambulated in the halls SBA with wheelchair follow. After gait and stairs assessment, pt returned to the chair, transferring SBA with good sequencing, no need for cues. Pt was positioned in the chair with call light and table within reach, fresh ice packs applied, and remaining to visit. Gait Assessment Gait Gait Assistance Required: Standby Assistance Distance (Feet) 120 Able to Maintain Weight Bearing Status Yes During Gait Assistive Devices Assistive Device Gait Belt,Front Wheeled Walker Orthotic/Prosthetic Devices or Brace: No Gait Deviations General Gait Pattern Antalgic,Decreased Stride Length,Decreased Feet Clearance,Step-to Gait Factors Limiting Gait Function Factors Limiting Gait Function Decreased Sensation,Decreased Strength,Limited Range of Motion,Pain Comments Gait Comments Pt ambulated in the halls with FWW SBA. Gait was notable for left foot drop which pt associates with outcome from prior lumbar surgery. He also endorses chronic bilateral neuropathy affecting sensation of distal feet (left more affected than right). Pt was safe with FWW and his was able to provide appropriate level of assist and cues. Stair Climbing Assessment Evaluation Level of Assist On Stairs Standby Assistance Devices Stair Climbing Assistive Devices Left Railing,Right Railing Technique/Endurance Stair Climbing Direction Ascend and Descend Stair Climbing Technique Step to Step Number of Steps Climbed 3 Query Text: Stair Climbing Set # Repetitions (reps) 2 Comments Stair Climbing Comments Pt was able to sequence stair navigation independently and safely with SBA PT-Balance Assessment Sitting Balance and Reactions Static Sitting Balance Ability Normal Dynamic Sitting Balance Ability Normal Standing Balance and Reactions Static Standing Balance Ability Good Dynamic Standing Balance Ability Good Device Used FWW M5 PT-IP Objective Assessments Start: 04/05/19 12:04 Freq: NEEDED Status: Active Protocol: Document 04/05/19 14:53 AW (Rec: 04/05/19 15:16 AW [id number]) Orientation Orientation/Cognition Level of Alertness Alert Orientation Name,Day of Week,Place, Situation Language Function Ability No Deficits Noted Safety Awareness Understands Safety Issues Memory Description No Deficits Noted Gross Range of Motion Upper Extremity ROM Assessment Within Functional Limits Lower Extremity ROM Assessment Left Impaired Strength Upper Extremity Strength Assessment Within Functional Limits Lower Extremity Strength Assessment Left Impaired Coordination Assessment Gross Coordination Gross Coordination WNL Sensation Assessment Sensation Gross Sensation Right LE Impaired,Left LE Impaired Light Touch Impaired Comments Sensation Comments Distal feet affected by neuropathy with pt reporting dull sensation (left more affected than right). Muscle Tone Muscle Tone WNL Yes M6 PT-IP Treatment Start: 04/05/19 12:04 Freq: NEEDED Status: Active Protocol: Document 04/05/19 14:53 AW (Rec: 04/05/19 15:16 AW [id number]) Physical Therapy Treatment Exercises Exercises Ankle Pumps,Quad Sets,Heel Slides,Passive Knee Extension Hang Education Education Provided Precautions,Weight Bearing Status,Post-Op Packet,Safety Other Treatments Other Treatment Performed Provided education on role of PT, plan of care, post-op exercises, weightbearing status, and safe use of FWW. M7 PT-IP Assessment and Plan Start: 04/05/19 12:04 Freq: NEEDED Status: Active Protocol: Document 04/05/19 14:53 AW (Rec: 04/05/19 15:16 AW [id number]) PT Summary Assessment and Plan Potential Rehabilitation Potential Excellent Status of Condition at Evaluation Evolving Summary Impairments Pain,ROM,Strength,Sensation, Transfers,Gait Assessment Summary Jasson is a 73 yo man seen for PT evaluation on POD0 following L TKA. He has history of R TKA less than a year ago from which he recovered to his satisfaction. At baseline, pt has been using a SPC for ~80% of all mobility due to increasing knee pain. He is otherwise independent with I/ADL's. On evaluation, pt required no more than SBA for all mobility , reporting mild pain in his left anterior thigh which increased with movement. He demonstrated good understanding of the postoperative course and rehab and was able to sequence all movement safely without verbal cues. His feels confident in her ability to provide an appropriate level of assist at home. PT recommends discharge to home with spouse assist and outpatient PT once pt is medically cleared. Goals Bed Mobility Goal Independent Transfer Goal Independent,Front Wheeled Walker Gait Goal Independent,Front Wheel Walker Gait Distance 200 Other Goals - up/down six stairs with L rail ascending and SPC held in opposite hand SBA Days to Meet Goals 1 Frequency of Treatment Frequency Of Treatment Twice a Day Treatment Plan Physical Therapy Treatment Plan Bed Mobility Training,Transfer Training,Gait Training, Therapeutic Exercise,Balance Retraining,Post Op Education, Discharge Planning,Hot or Cold Pack,Neuromuscular Re-ed, Coordination Retraining,Manual Therapy Recommendations To Nursing Amount of Assist Needed Standby Assistance Discharge Recommendations PT Discharge Recommendations Home with Assistance, Outpatient PT Transportation Needs at Discharge Private Vehicle
== END 2019-04-05 16:40 | disposition home or self-care (01) ==
LOC: AC 11:46 → OR 16:54
PROVIDERS: PCP Internal Medicine; Referring Provider Internal Medicine; Visit Provider Orthopaedic Surgery
PROC: 0SRD0JZ Replacement of Left Knee Joint with Synthetic Substitute, Open Approach (ICD-10-PCS; CPT 27447; principal; 2019-04-05 07:45)
DX: M17.12 Unilateral primary osteoarthritis, left knee (principal)
CPT/HCPCS: 27447; 64447; 73560; 97110; 97161; C1776; C9290; J0690; J2250; J2270; J3010

== ENCOUNTER → 2019-11-24 19:17 | Outpatient (ROUT) | payer MEDICARE, OTHER, SELFPAY ==
[2019-04-05 11:46] VITALS: BMI 27.6
[2019-11-24 19:42] LABS: Aspartate Aminotransferase 33 IU/L (17-59); BUN Creatinine Ratio 28.8 (6-22); Blood Urea Nitrogen 21 mg/dL (9-20); Calcium 9.6 mg/dL (8.4-10.2); Carbon Dioxide 30 mmol/L (22-32); Chloride 102 mmol/L (98-107); Cholesterol 152 mg/dL (140-199); Estimated Glomerular Filt Rate > 60.0 mL/min (>60); Glucose 89 mg/dL (80-110); HDL Cholesterol 65 mg/dL (40-60); HEMOLYSIS < 15 (0-50); LDL Cholesterol Calculated 72 mg/dL (<100); Sodium 138 mmol/L (137-145); Triglycerides 75 mg/dL (35-150)
[2019-11-24 20:11] LABS: Prostate Specific Antigen 0.445 ng/mL (0.10-4.00); TSH w/ Reflex to FT4 2.96 uIU/mL (0.47-4.68)
== END ==
PROVIDERS: PCP Internal Medicine; Visit Provider Internal Medicine
DX: N40.0 Benign prostatic hyperplasia without lower urinary tract symptoms (principal); E03.9 Hypothyroidism, unspecified; E78.2 Mixed hyperlipidemia; I10 Essential (primary) hypertension
CPT/HCPCS: 80048; 80061; 84153; 84443; 84450

== ENCOUNTER → 2021-07-02 12:50 | Outpatient (CLI) | payer MEDICARE, OTHER, SELFPAY ==
[2019-04-05 11:46] VITALS: BMI 27.6
--- NOTE | 2021-07-02 12:54 | DI.RAD.S_ITS ---
PROCEDURE: XR FOOT RT MIN 3V INDICATIONS: bilateral foot pain TECHNIQUE: 3 views of the right foot were acquired. COMPARISON: None. FINDINGS: Bones: No fractures or dislocations. No suspicious bony lesions. Mild midfoot osteoarthritis. Soft tissues: No tibiotalar joint effusion. Achilles tendon appears normal. IMPRESSION: No fracture. No acute osseous lesion. If symptoms and/or clinical suspicion for pathology persists, further assessment with repeat radiographs (7-10 days) or advanced imaging (e.g. CT, MRI or bone scan) should be considered. Mild midfoot osteoarthritis. Dictated by: Mayelin Swift MD, PhD on 07/02/2021 at 15:37 Approved by: Mayelin Swift MD, PhD on 07/02/2021 at 15:38
--- NOTE | 2021-07-02 12:54 | DI.RAD.S_ITS ---
PROCEDURE: XR FOOT LT MIN 3V INDICATIONS: bilateral foot pain TECHNIQUE: 3 views of the left foot were acquired. COMPARISON: None. FINDINGS: Bones: No fractures or dislocations. No suspicious bony lesions. Mild midfoot osteoarthritis. Soft tissues: No tibiotalar joint effusion. Achilles tendon appears normal. IMPRESSION: No fracture. No acute osseous lesion. If symptoms and/or clinical suspicion for pathology persists, further assessment with repeat radiographs (7-10 days) or advanced imaging (e.g. CT, MRI or bone scan) should be considered. Mild left midfoot osteoarthritis. Dictated by: Mayelin Swift MD, PhD on 07/02/2021 at 15:36 Approved by: Mayelin Swift MD, PhD on 07/02/2021 at 15:37
== END ==
PROVIDERS: PCP Internal Medicine; Referring Provider Internal Medicine; Visit Provider Internal Medicine
DX: M19.072 Primary osteoarthritis, left ankle and foot (principal); M19.071 Primary osteoarthritis, right ankle and foot; M79.671 Pain in right foot; M79.672 Pain in left foot
CPT/HCPCS: 73630

== ENCOUNTER → 2021-12-31 16:00 | Outpatient (CLI) | payer MEDICARE, OTHER, SELFPAY ==
[2019-04-05 11:46] VITALS: BMI 27.6
[2021-12-31 16:37] LABS: Hematocrit 39.9 % (41-53); Hemoglobin 13.9 g/dL (13.5-17.5); Mean Corpuscular HGB Conc 34.9 % (30-36); Mean Corpuscular Hemoglobin 33.2 PG (26-34); Mean Corpuscular Volume 95.2 fL (80-100); Platelet Count 153 X10^3/uL (150-400); Red Blood Cell Count 4.19 X10^6/uL (4.5-5.9); Red Cell Distribution Width 13.3 % (11.6-14.8); White Blood Cell Count 5.8 X10^3/uL (4.5-11.0)
[2021-12-31 16:46] LABS: HEMOLYSIS < 15 (0-50)
[2021-12-31 16:53] LABS: Alanine Aminotransferase 28 IU/L (<50); Albumin 4.4 g/dL (3.5-5.0); Albumin Globulin Ratio 1.4 (1.0-2.8); Alkaline Phosphatase 75 U/L (38-126); Aspartate Aminotransferase 37 IU/L (17-59); BUN Creatinine Ratio 28.4 (6-22); Bilirubin Total 0.8 mg/dL (0.2-1.3); Blood Urea Nitrogen 21 mg/dL (9-20); Calcium 9.3 mg/dL (8.4-10.2); Carbon Dioxide 32 mmol/L (22-32); Chloride 101 mmol/L (98-107); Cholesterol 147 mg/dL (140-199); Estimated Glomerular Filt Rate > 60 mL/min (>60); Globulin 3.2 g/dL (1.7-4.1); Glucose 102 mg/dL (80-110); HDL Cholesterol 57 mg/dL (40-60); LDL Cholesterol Calculated 71 mg/dL (<100); Potassium 4.4 mmol/L (3.4-5.1); Sodium 140 mmol/L (137-145); Total Protein 7.6 g/dL (6.3-8.2); Triglycerides 94 mg/dL (35-150)
[2021-12-31 17:34] LABS: TSH w/ Reflex to FT4 1.45 uIU/mL (0.47-4.68)
[2022-01-01 14:12] LABS: Prostate Specific Antigen 0.626 ng/mL (0.10-4.00)
== END ==
PROVIDERS: PCP Internal Medicine; Referring Provider Internal Medicine; Visit Provider Internal Medicine
DX: E03.9 Hypothyroidism, unspecified (principal); N40.0 Benign prostatic hyperplasia without lower urinary tract symptoms; E78.2 Mixed hyperlipidemia; I87.2 Venous insufficiency (chronic) (peripheral)
CPT/HCPCS: 36415; 80053; 80061; 84153; 84443; 85027

== ENCOUNTER → 2023-01-07 14:49 | Outpatient (CLI) | payer MEDICARE, OTHER, SELFPAY ==
[2019-04-05 11:46] VITALS: BMI 27.6
[2023-01-07 15:52] LABS: Aspartate Aminotransferase 34 IU/L (17-59); BUN Creatinine Ratio 25.9 (6-22); Blood Urea Nitrogen 21 mg/dL (9-20); Carbon Dioxide 32 mmol/L (22-32); Chloride 100 mmol/L (98-107); Cholesterol 138 mg/dL (140-199); Estimated Glomerular Filt Rate > 60 mL/min (>60); Glucose 104 mg/dL (80-110); HDL Cholesterol 60 mg/dL (40-60); HEMOLYSIS < 15 (0-50); LDL Cholesterol Calculated 65 mg/dL (<100); Potassium 4.6 mmol/L (3.4-5.1); Sodium 137 mmol/L (137-145); Triglycerides 65 mg/dL (35-150)
[2023-01-07 16:20] LABS: Prostate Specific Antigen 0.541 ng/mL (0.10-4.00)
[2023-01-07 16:21] LABS: TSH w/ Reflex to FT4 0.39 uIU/mL (0.47-4.68)
[2023-01-07 17:09] LABS: Free T4, Direct Thyroxine 1.52 ng/dL (0.78-2.19)
== END ==
PROVIDERS: PCP Internal Medicine; Referring Provider Internal Medicine; Visit Provider Internal Medicine
DX: E03.9 Hypothyroidism, unspecified (principal); N40.0 Benign prostatic hyperplasia without lower urinary tract symptoms; E78.2 Mixed hyperlipidemia
CPT/HCPCS: 36415; 80048; 80061; 84153; 84439; 84443; 84450

== ENCOUNTER → 2023-05-15 12:40 | Outpatient (CLI) | payer MEDICARE, SELFPAY ==
[2019-04-05 11:46] VITALS: BMI 27.6
--- NOTE | 2023-05-15 12:42 | DI.RAD.S_ITS ---
PROCEDURE: FL BARIUM SWALLOW INDICATIONS: Dysphagia, unspecified COMPARISON: None. FINDINGS: Function: There is severe esophageal dysmotility with disorganized esophageal peristalsis. No elicited gastroesophageal reflux. There is normal transit of a calibrated barium tablet through the esophagus into the stomach. Morphology: Air-contrast images demonstrate normal mucosal morphology. Single contrast views show no esophageal strictures, extrinsic mass effects, or diverticula. Small sliding hiatal hernia. Limited images of the stomach demonstrate normal appearance. IMPRESSION: 1. Severe esophageal dysmotility. 2. Small sliding hiatal hernia. Dictated by: Elicia Galvan M.D. on 05/16/2023 at 10:40 Approved by: Elicia Galvan M.D. on 05/16/2023 at 10:41
== END ==
LOC: RAD 12:40
PROVIDERS: PCP Internal Medicine; Referring Provider Internal Medicine; Visit Provider Internal Medicine
DX: R13.10 Dysphagia, unspecified (principal); K22.4 Dyskinesia of esophagus; K44.9 Diaphragmatic hernia without obstruction or gangrene
CPT/HCPCS: 74220

== ENCOUNTER → 2024-03-17 16:29 | Outpatient (CLI) | payer MEDICARE, SELFPAY ==
[2019-04-05 11:46] VITALS: BMI 27.6
[2024-03-17 18:24] LABS: Aspartate Aminotransferase 46 IU/L (17-59); BUN Creatinine Ratio 23.8 (6-22); Blood Urea Nitrogen 20 mg/dL (9-20); Calcium 9.8 mg/dL (8.4-10.2); Carbon Dioxide 30 mmol/L (22-32); Chloride 101 mmol/L (98-107); Cholesterol 151 mg/dL (140-199); Estimated Glomerular Filt Rate > 60 mL/min (>60); Glucose 100 mg/dL (80-110); HDL Cholesterol 67 mg/dL (40-60); HEMOLYSIS < 15 (0-50); LDL Cholesterol Calculated 62 mg/dL (<100); Potassium 4.3 mmol/L (3.4-5.1); Sodium 138 mmol/L (137-145); Triglycerides 112 mg/dL (35-150)
[2024-03-17 18:54] LABS: Prostate Specific Antigen 0.626 ng/mL (0.10-4.00)
[2024-03-17 18:55] LABS: TSH w/ Reflex to FT4 0.57 uIU/mL (0.47-4.68)
== END ==
LOC: LAB 16:30
PROVIDERS: PCP Internal Medicine; Referring Provider Internal Medicine; Visit Provider Internal Medicine
DX: E78.2 Mixed hyperlipidemia (principal); E03.9 Hypothyroidism, unspecified; R03.0 Elevated blood-pressure reading, without diagnosis of hypertension
CPT/HCPCS: 36415; 80048; 80061; 84153; 84443; 84450

== ENCOUNTER → 2024-11-01 16:06 | Outpatient (CLI) | payer MEDICARE, SELFPAY ==
[2019-04-05 11:46] VITALS: BMI 27.6
[2024-11-01 16:59] LABS: Influenza A - CEPHEID Flu A NEGATIVE (NEGATIVE); Influenza B - CEPHEID Flu B NEGATIVE (NEGATIVE)
[2024-11-01 17:41] LABS: COVID-19 CEPHEID 4-PLEX PCR POSITIVE (Negative)
== END ==
PROVIDERS: PCP Internal Medicine; Visit Provider Physician Assistant
DX: J02.9 Acute pharyngitis, unspecified (principal); Z20.822 Contact with and (suspected) exposure to COVID-19
CPT/HCPCS: 87637